=== PATIENT | male | born 1985 ===

== ENCOUNTER 2023-11-25 14:57 | Outpatient (AMB) | payer OTHER, SELFPAY ==
--- NOTE | 2023-11-25 15:02 | MHC.OFFVIS ---
Intake Vital Signs 11/25/23 15:03 Height 5 ft 6 in Weight 250 lb BMI 40.3 BP 132/70 Blood Pressure Location Rt brachial Position Sitting Intake Visit Reasons: sleep apnea Allergies No Known Allergies Allergy (Verified 11/25/23 15:02) HPI HPI Comments History of Present Illness Details The patient is here for pulmonary evaluation. The patient is a 38-year-old gentleman with a known history of obstructive sleep apnea. He has had a diagnosis made about 10 years ago he had a sleep study sometime [place]. At that point he was set up with a [employer] CPAP. It is the 1 that is recalled. Although he did not submitted for recall. The patient has been using it every night. He has no longer getting supplies through a DME company. Been buying his own supplies. He does using nasal pillows with good effect. Sometimes he gets a dry mouth although he does not use water on his machine. The patient will bring the machine into again download the data. In the meantime the machine now is greater than 10 years old and he should be able to update the machine specially since he has been recalled. We will request a replacement machine through 1 of the local DME companies at this time. His current [place] score is 6/24 while using CPAP therefore affecting beneficial. He does use it for more than 4 hours a night and he is found very affecting beneficial. Otherwise patient is without any o [facility] Medical History (Updated 11/25/23 @ 22:38 by Charles Nielson MD) KAYLI (obstructive sleep apnea) Social History (Updated 11/25/23 @ 15:07 by PADMA Evans) Patient Tobacco Use Status: Never used Tobacco Substance Use Type: Marijuana Review of Systems Const Denies daytime sleepiness Eyes Reports no additional complaints ENT Denies nasal congestion Card Denies chest pain Resp Denies cough and Denies wheezing GI Reports no additional complaints Musc Reports no additional complaints Skin/Breast Denies rash Neuro Reports no additional complaints Zac/Lymph Denies lymphadenopathy Aller/Immun Denies wheezing Physical Exam Vital Signs: Last Vital Signs BP 132/70 11/25/23 15:03 BMI result Body Mass Index 40.3 Const General: comfortable HEENT Head: Yes normocephalic Neck Neck: Yes supple Chest Chest palpation & inspection: normal inspection of the chest Resp Effort & Inspection: normal respiratory effort Auscultation: clear to auscultation bilaterally Cardio Heart sounds: S1 normal heart sound present and S2 normal heart sound present GI Palpation (GI): Soft to palpation Skin General skin exam: no rashes or lesions noted Extrem General: Yes no clubbing, cyanosis or edema Assessment & Plan Assessment & Plan (1) KAYLI (obstructive sleep apnea): Code(s): G47.33 - Obstructive sleep apnea (adult) (pediatric) Plan Needs a replacement CPAP. uses p10 nasal pillows Coding Level of Care Code New Pt Level 3 (42361) Diagnoses KAYLI (obstructive sleep apnea) G47.33 Time Spent (min) 30
[2023-11-25 15:03] VITALS: BP 132/70; BMI 40.3
== END 2023-11-25 15:27 | disposition home or self-care (01) ==
PROVIDERS: Visit Provider Hospitalist
DX: G47.33 Obstructive sleep apnea (adult) (pediatric) (principal)
CPT/HCPCS: 99203

== ENCOUNTER → 2023-11-25 14:57 | Outpatient (BNVA) | payer OTHER, SELFPAY | PROVIDERS: Visit Provider Hospitalist ==

== ENCOUNTER 2024-12-16 12:18 | Emergency (ER) | payer OTHER, SELFPAY ==
--- NOTE | ~2024-12-16 | XR_ITS ---
CLINICAL HISTORY: Chest pain 1 view chest x-ray Comparison: None Findings: No consolidation or effusion. Heart size is normal. No acute fracture. IMPRESSION: 1. No acute findings. This document has been electronically signed by: Rashida Anaya MD on 12/16/2024 13:21:01
--- NOTE | 2024-12-16 12:19 | ECG_ITS ---
Test Reason : CHEST PAIN Blood Pressure : */* mmHG Vent. Rate : 131 BPM Atrial Rate : 131 BPM P-R Int : 142 ms QRS Dur : 92 ms QT Int : 300 ms P-R-T Axes : 57 29 26 degrees QTcB Int : 443 ms Sinus tachycardia Otherwise normal ECG No previous ECGs available Referred By: Ana M De La Vega Electronically Signed By: AMBER RAMOS
[2024-12-16 12:31] VITALS: PULSE 131; RESP 19; TEMP 36.6; O2SAT 98; BMI 38.4
--- NOTE | 2024-12-16 12:32 | ED.CHESTPAIN ---
HPI - Chest Pain General Chief Complaint: Arrhythmia/Palpitations Stated Complaint: chest pain Time Seen by Provider: 12/16/24 13:20 Source: patient Limitations: no limitations History of Present Illness ED Provider: Chet Thompson DO HPI narrative: 39-year-old male with past medical history of obstructive sleep apnea and GERD presents to the ED for chest pain and difficulty breathing. Patient states he was out on a walk with his dog and approximately 10 minutes into the walk which was at about 10:00 this morning he experienced the shortness of breath which is atypical for him. When he completed the 20 minute walk he then noticed a heaviness on the left side of his chest without radiation described as a 10 lb weight on his chest. He describes that over time with rest the weight is approximately 3 or 4 lb at this time. He denies similar pain in the past and states the pressure is much different from his normal GERD. He denies any specific increased pain with deep breaths but notices it more after complete exhalation. He denies recent illnesses, fevers, cough, hemoptysis, lower extremity pain or swelling, previous DVT or PE, recent travel, immobilization, cancer history or recent surgeries. He is on medication for hyperlipidemia and metformin for diabetes. He has a primary care provider. He uses pillows for his sleep apnea, does not use CPAP machine. Related Data Home Medications ?Medication ?Instructions ?Recorded ?Confirmed CPAP (CPAP Machine/Device) 11/25/23 Allergies Allergy/AdvReac Type Severity Reaction Status Date / Time No Known Allergies Allergy Verified 12/16/24 12:32 Review of Systems Review of Systems: Yes all other systems are reviewed and are negative [facility] Past Medical History Medical History (Updated 12/16/24 @ 15:56 by Chet Thompson DO) KAYLI (obstructive sleep apnea) Social History Social History (Updated 11/25/23 @ 15:07 by PADMA Evans) Patient Tobacco Use Status: Never used Tobacco Smoked in Last 30 Days: No Use of substances other than those prescribed or required for medical reasons: Yes Substance Use Type: Marijuana Substance Use Frequency: Daily Advance Directives: No Advance Directives Information Provided: No Do you have a plan to hurt others: No Plan Physical Exam Vital Signs: Vital Signs: Last Vital Signs Temp 98 F 12/16/24 12:31 Pulse 102 H 12/16/24 14:26 Resp 18 12/16/24 14:26 BP 130/84 12/16/24 14:26 Pulse Ox 97 12/16/24 14:26 O2 Del Method Room Air 12/16/24 14:26 BMI result Body Mass Index 38.4 Constitutional: ?Alert, oriented, speaking in full sentences HEENT: ?Normocephalic, atraumatic. ?Moist mucous membranes Eyes: ?PERRL, EOMI Neck: ?Supple, nontender Chest: ?No chest wall tenderness Respiratory: ?Lungs clear to auscultation, no increased work of breathing Cardio: ?Tachycardic, regular rhythm, no murmur, 2+ radial and DP pulses symmetrically GI: ?Soft, nondistended, nontender Back: ?Normal range of motion, nontender Skin: ?No rash, no lesions Neuro: ?Alert and oriented to person, place and time, moves all 4 extremities, no focal deficits Extremities: ?No swelling or tenderness, full range of motion Psych: ?Calm, alert and cooperative, appropriate behavior Course Course Course Narrative: This is a Rapid Medical Exam performed in triage by Ana M De La Vega PA-C. Full HPI, ROS and PE to be performed by primary ED provider. 39 yo M w/PMHx KAYLI presenting to the ED c/o chest pain, SOB and tingling x 1 hour [employer] PE: Ambulating with steady gait, nontoxic appearing, no respiratory distress Plan: EKG, labs, CXR, viral testing Medications Administered Discontinued Medications Generic Name Dose Route Start Last Admin Trade Name Freq PRN Reason Stop Dose Admin Aspirin 324 mg 12/16/24 14:09 12/16/24 14:28 Aspirin 81 Mg Tab.Chew PO 12/16/24 14:10 324 mg ONCE ONE Administration Medical Decision Making Medical Decision Making [facility] Narrative: This patient presents with chest pain. His risk factors include hyperlipidemia and type 2 diabetes. Never tobacco user. No previous cardiac provocative testing. Exam without evidence of volume overload. EKG without signs of active ischemia. HEART score: 3. Plan to send troponin to evaluate for evidence of NSTEMI. Although he is not hypoxic, he is tachycardic and PE will be further evaluated with D-dimer as he is low risk when applying Wells criteria. Presentation not consistent with pneumothorax, thoracic arotic dissection, cardiac effusion or tamponade. Plan: labs, troponin, EKG, CXR, ASA, serial reassessment Initial troponin unremarkable. Other labs are reassuring, D-dimer pending. Patient will require repeat troponin. Repeat troponin, D-dimer and repeat ECG unremarkable. Chest pressure has resolved and did not recur with ambulation to the bathroom. The patient is overall low risk for severe adverse effects at this time. I did discuss with him that it is imperative that he returns with any worsening symptoms, especially with ambulation and that he follows up with his primary care provider and/or Cardiology (referral provided) for outpatient testing. Patient agrees with plan. Admission/Observation Consideration of admission/observation: Escalation of care including admission/observation considered Lab Data MDM Lab Attestation statement: I reviewed the patient's lab results. 12/16/24 12:53 12/16/24 12:53 Labs: Lab Results 12/16/24 12/16/24 Range/Units 12:53 15:02 WBC 9.1 (4.8-10.8) X10*3/uL RBC 4.89 (4.60-5.80) X10*6/uL Hgb 15.1 (14.0-18.0) g/dl Hct 43.2 (42.0-52.0) % MCV 88.3 (80.0-98.0) fL MCH 30.9 (27.0-33.0) pg MCHC 35.0 (31.0-36.0) g/dl RDW 12.4 (11.0-16.0) % Plt Count 364 (160-400) X10*3/uL MPV 9.1 L (9.4-12.4) fL Immature Gran % (Auto) 0.3 (0.0-0.4) % Neut % (Auto) 58.7 (45-73) % Lymph % (Auto) 27.0 (20-40) % [place] % (Auto) 10.5 (2-11) % Eos % (Auto) 2.6 (0-4) % Baso % (Auto) 0.9 (0-2) % Lymph # (Auto) 2.5 (1.2-4.9) X10*3/uL [place] # (Auto) 1.0 (0.1-1.2) X10*3/uL Eos # (Auto) 0.2 (0.0-0.4) X10*3/uL Baso # (Auto) 0.1 (0.0-0.2) X10*3/uL Abs Immat Gran (auto) 0.03 (0.00-0.03) X10*3/uL Absolute Neuts (auto) 5.3 (2.0-8.3) x10*3/uL Absolute Nucleated RBC 0.000 (0.0-0.012) X10*3/uL Nucleated RBC % (auto) 0.0 (0.0-0.2) /100WBC PT 11.5 (10.9-12.4) SEC INR 1.0 (0.9-1.1) D-Dimer High Sensitivty < 150 NG/ML Sodium 139 (135-145) mmol/L Potassium 3.9 (3.3-5.1) mmol/L Chloride 108 (96-108) mmol/L Carbon Dioxide 22 (22-29) mmol/L Anion Gap 13 (12-20) BUN 11 (9-16) mg/dL Creatinine 1.00 (0.5-1.4) mg/dL Estim Creat Clear Calc 112.0 Estimated GFR > 60 Random Glucose 134 H (60-115) mg/dL Calcium 8.9 (8.4-10.2) mg/dL Magnesium 1.9 (1.6-2.6) mg/dL Total Bilirubin 0.4 (0.0-1.0) mg/dL Direct Bilirubin 0.2 (0.0-0.5) mg/dL AST 26 (5-37) U/L ALT 30 (0-40) U/L Alkaline Phosphatase 91 (39-117) U/L Troponin I High Sens < 2.7 < 2.7 (<3.5-35.0) ng/L B-Natriuretic Peptide < 10 (<100) pg/mL Total Protein 7.8 (6.5-8.0) g/dL Albumin 4.4 (3.5-5.0) g/dL TSH 0.61 (0.32-4.0) uIU/mL Influenza Type A (PCR) NEGATIVE (Negative) Influenza Type B (PCR) NEGATIVE (Negative) RSV RNA Qual (PCR) NEGATIVE (Negative) SARS-CoV-2 RNA (RT-PCR) NEGATIVE (Negative) Independent Interpretation I performed an independent interpretation of an: EKG and Plain X-Ray (Chest x-ray per my independent interpretation shows no acute cardiopulmonary abnormalities.) Interpretation: Sinus tachycardia at 131 beats per minute, normal axis, unremarkable intervals, some ST depression anteriorly, likely rate dependent, no diagnostic ST wave elevation, no prior for comparison. Repeat ECG at 14:50 shows borderline sinus tachycardia at 100 beats per minute, no ST or T-wave abnormalities with the exception of normal variant T-wave inversion in lead 3. Scores Heart Score History: -1- moderately suspicious ECG: -0- normal Age: -0- < or = 45 Risk factory: -2- 3 or more risk factors or treated atherosclerosis Troponin: -0- < or = normal limit Score: 3 Risk: 1.7% Wells PE Heart rate > 100 p/min: 1.5 Score: 1.5 2-tier Risk: unlikely risk (5%) 3-tier Risk: low risk (3.4%) Discharge Plan Discharge Clinical Impression: Chest pain Qualifiers: Chest pain type: unspecified Qualified Code(s): R07.9 - Chest pain, unspecified Patient Disposition: Home, Self-Care Instructions: Chest Pain (ED) Additional Instructions: You have been evaluated in the emergency department for chest pain today.? Although it was determined that there was not an immediately life threatening cause for your chest pain, it is very important that you follow up with your primary care physician.? Further cardiac (heart) testing may be recommended. Please be aware that if your condition changes or worsens in any way while you are at home, you should return to the emergency department immediately for further care.? This is especially true for worsening / recurrent pain, shortness of breath, vomiting, sweating, palpitations, lightheadedness or passing out.? These may be signs of an emergency condition and you should call 911 if these symptoms occur. Thank you for choosing us for your care. Prescriptions: No Action (DME) CPAP Machine/Device Device See Rx Instructions .ROUTE Rx Instructions: As directed Referrals: [facility] [place] [facility] [Provider Group] (Chest pain described as pressure with exertion, overall low risk with a heart score of 3, unremarkable troponin x2, ECG x2 and D-dimer here. Recommend outpatient stress test) Print Language: [place]
[2024-12-16 12:58] LABS: MANUAL DIFF FLAG NO
[2024-12-16 13:00] LABS: Basophils Absolute Auto 0.1 X10*3/uL (0.0-0.2); Basophils Percent Auto 0.9 % (0-2); Eosinophils Absolute Auto 0.2 X10*3/uL (0.0-0.4); Eosinophils Percent Auto 2.6 % (0-4); Hematocrit 43.2 % (42.0-52.0); Hemoglobin 15.1 g/dl (14.0-18.0); Imm Gran Abs Auto 0.03 X10*3/uL (0.00-0.03); Imm Gran Pct Auto 0.3 % (0.0-0.4); Lymphocytes Absolute Auto 2.5 X10*3/uL (1.2-4.9); Mean Corpuscular Hemoglobin 30.9 pg (27.0-33.0); Mean Corpuscular Volume 88.3 fL (80.0-98.0); Mean Platelet Volume 9.1 fL (9.4-12.4); Monocytes Percent Auto 10.5 % (2-11); Neutrophils Absolute Auto 5.3 x10*3/uL (2.0-8.3); Neutrophils Percent Auto 58.7 % (45-73); Platelet Count 364 X10*3/uL (160-400); Red Blood Count 4.89 X10*6/uL (4.60-5.80); Red Cell Distribution Width 12.4 % (11.0-16.0); White Blood Count 9.1 X10*3/uL (4.8-10.8)
[2024-12-16 13:06] LABS: Prothrombin Time 11.5 SEC (10.9-12.4)
--- OUTSIDE RECORDS SUMMARY | 2024-12-16 13:13 | XMS_ITS | Data Portability ---
Author Organization [facility], [facility] Address [address] [place] [address] Care Team Providers Care Online Content Editor Name Role Phone ANTONYEMETERIO Primary Care Provider Assessment No assessment recorded. Plan of Treatment Reminders Order Date Submit Date Provider Last Modified By Organization Details Last Modified Time Details Appointments PCP-Physi gail-30 Min 2024 11:30A M LYNNE SMITH NP Not available Not available Not available Lab HbA1c (hemoglob in A1c), blood 2022 023 [facility], [address] [place], [address], 01/14/2023 21:16:16 CMP, serum or plasma 2022 023 [facility], [address] [place], [address], 01/14/2023 21:25:28 TSH, serum, reflex free T4 2022 023 [facility], [address] [place], [address], 01/14/2023 21:25:29 lipid panel, serum 2022 023 [facility], [address] [place], [address], 01/14/2023 21:25:29 toxicolog y screen, urine 2022 023 [facility], [address] [place], [address], 10/05/2023 18:08:14 HbA1c (hemoglob in A1c), blood 2022 023 [facility], [address] [facility] [place], [address], 10/01/2023 16:01:45 urinalysi s, dipstick, reflex micro 2022 023 [facility], [address] [facility] [place], [address], 10/01/2023 15:29:30 CMP, serum or plasma 2022 023 [facility], [address] [facility] [place], [address], 10/01/2023 16:10:30 CBC w/ auto diff 2022 023 [facility], [address] [place], [address], 10/01/2023 15:44:48 TSH + free T4, serum 2022 023 [facility], [address] [facility] [place], [address], 10/01/2023 16:10:36 vitamin B12 + folate, serum or blood 2022 023 [facility], [address] [facility] [place], [address], 10/01/2023 16:19:43 lipid panel, serum 2022 023 [facility], [address] [facility] [place], [address], 10/01/2023 16:10:34 25-hydrox yvitamin D2 + 25-hydrox yvitamin D3, QN, serum or plasma 2022 023 [facility], [address] [facility], [address], 10/01/2023 16:19:12 magnesium , serum or plasma 2022 023 [facility], [address] [place], [address], 10/01/2023 16:10:33 HbA1c (hemoglob in A1c), blood 2023 024 [facility], [address] [place], [address], 01/21/2024 22:20:17 CBC w/ auto diff 2023 024 [facility], [address] [place], [address], 01/21/2024 21:05:32 CMP, serum or plasma 2023 024 [facility], [address] [place], [address], 01/21/2024 20:41:26 toxicolog y screen, urine 2023 024 [facility], [address] [place], [address], 05/10/2024 13:09:23 HbA1c (hemoglob in A1c), blood 2023 024 [facility], [address] [place], [address], 04/28/2024 16:44:30 CMP, serum or plasma 2023 024 [facility], [address] [place], [address], 04/28/2024 16:26:43 CBC w/ auto diff 2023 024 [facility], [address] [place], [address], 04/28/2024 15:31:29 Referral pulmonolo gist referral - Please let the office know if patient has been scheduled at [phone] 2022 023 [email or web address] [facility] [place], [address], 08/17/2024 13:02:49 psychiatr ist referral - patient is looking for a psychiatr ist - was referred from his therapist has been taking antidepre ssants and also on Ritalin for ADHD [email or web address] [place] [address], [address] [place] [address], [address], 03/27/2024 09:28:57 Procedures None recorded. Surgeries None recorded. Imaging None recorded. Medication Orders methylphe nidate 20 mg tablet 2022 [id number] [address] [place], [address], 10/01/2023 10:57:23 methylphe nidate ER 36 mg tablet,ex tended release 24 hr 2022 023 [facility] #[id number], [address] [place], [address], 10/01/2023 10:49:30 bupropion HCl 75 mg tablet 2022 023 [facility] #[id number], [address] [place], [address], 10/01/2023 10:51:22 metoprolo l succinate ER 50 mg tablet,ex tended release 24 hr 2023 024 [facility] #[id number], [address] [place], [address], 01/21/2024 15:58:48 Trulicity 0.75 mg/0.5 mL subcutane ous pen injector 2023 024 [facility] #[id number], [address] [place], [address], 04/28/2024 10:16:56 methylphe nidate ER 36 mg tablet,ex tended release 24 hr 2023 024 [id number], [address] [place], [address], 01/21/2024 15:57:12 methylphe nidate 20 mg tablet 2023 024 [id number] [facility]/Pharmacy #[id number], [address] [place], [address], 01/24/2024 01:19:39 venlafaxi ne ER 75 mg capsule,e xtended release 24 hr 2023 024 [email or web address] [facility]armacy #[id number], [address] [place], [address], 01/21/2024 15:55:55 Patient TargetsNo targets recorded. Patient Instructions Encounter Date Encounter Id Patient Instructions Last Modified By Organization Details Last Modified Time 10/01/2023 [id number] discussed having influenza vaccine at the pharmacy discussed changing metformin 500 mg to extended release UDS completed today for scheduled med monitoring added long acting concerta 36 mg daily and continue the short acting as needed at 2-3pm - 10 mg tabs - (1 or 2 as needed) in the later afternoon added wellbutrin 75 mg BID for tolerance - he is already taking venlafaxine 225 mg daily would like to add wellbutrin at a low dose to see how he tolerates this med with his regimen Labs pending aminata Not available 10/01/2023 10:54:04 01/21/2024 [id number] follow up in 3 months or sooner for DM, tachycardia start trulicity injections weekly - Last A1C 8.1 continue Metformin 1000 BID - (has only been taking 500 daily on accident) labs pending today 3 month follow up scheduled aminata Not available 01/21/2024 16:12:26 04/28/2024 [id number] labs ordered no changes today - will call with results if needing to titrate any meds Annual exam 10/2024 aminata Not available 04/28/2024 10:25:29 Reason for Referral Transformation Manager Referral for S leep apnea Please let the office know if patient has been scheduled at [phone] Referring Physician: Lynne Smith [facility], Encounter Date: 10/01/2023 Psychiatrist Referral for Mi xed anxiety and depressive disorder patient is looking for a psychiatrist - was referred from his therapist has been taking antidepressants and also on Ritalin for ADHD Referring Physician: Lynne Smith [facility], Encounter Date: 01/21/2024 Results Created Date Observation Date Name Description Value Unit Range Abnormal Flag Note LastModifiedBy Organization Detail LastModifiedTime 01/15/2001/14/2023 HEMOG LOBIN A1C hemoglobin A1C % 6.0 % 4.0-5. 7 high % of the total HgB Inter preta tion ----- ----- ----- --- ----- ----- ----- - <5.7 Consi stent with the absen ce of diabe theresa 5.7-6 .4 Consi stent with incre ased risk for diabe theresa (pred iabet es) > or = to 6.5 Consi stent with Diabe theresa Not Available [facility] [address] [place], [address] 01/14/2023 21:16:16 01/15/2001/14/2023 COMPR EHENS YADY MET. PANEL sodium 142 mmol/ L 136-14 5 normal Not Available [facility] [address] [place], [address] 01/14/2023 21:25:28 01/15/20 23 01/14/2023 COMPR EHENS YADY MET. PANEL potassium 4.3 mmol/ L 3.5-5. 1 normal Not Available [facility] [address] [place], [address] 01/14/2023 21:25:28 01/15/20 23 01/14/2023 COMPR EHENS YADY MET. PANEL chloride 100 mmol/ L 98-107 normal Not Available [facility] [address] [place], [address] 01/14/2023 21:25:28 01/15/20 23 01/14/2023 COMPR EHENS YADY MET. PANEL carbon dioxide 27.6 mmol/ L 22-29 normal Not Available [facility] [address] [place], [address] 01/14/2023 21:25:28 01/15/20 23 01/14/2023 COMPR EHENS YADY MET. PANEL anion gap 19 mmol/ L 10-20 normal Not Available [facility] [address] [place], [address] 01/14/2023 21:25:28 01/15/20 23 01/14/2023 COMPR EHENS YADY MET. PANEL blood urea nitrogen 12 mg/dL 6-20 normal Not Available [facility] Department [address] [place], [address] 01/14/2023 21:25:28 01/15/20 23 01/14/2023 COMPR EHENS YADY MET. PANEL creatinine 1.12 mg/dL 0.70-1 .2 normal Not Available [facility] [address] [place], [address] 01/14/2023 21:25:28 01/15/2001/14/2023 COMPR EHENS YADY MET. PANEL eglomerular filtration rate 82 GFR Value : ml/mi n/1.7 3 squar e meter s * If patie nt is Afric an-Am jayne n, multi ply resul t by 1.159 Chron ic Kidne y Disea se is defin ed as less than 60 ml/mi n/1.7 3 squar e meter s. Kidne y failu re is less than 15 ml/mi n/1.7 3 squar e meter s Test is not perfo rmed on patie nts under the age of 18 Not Available [facility] [address] [place], [address] 01/14/2023 21:25:28 01/15/20 23 01/14/2023 COMPR EHENS YADY MET. PANEL glucose 71 mg/dL 70-106 normal Not Available [facility] [address] [place], [address] 01/14/2023 21:25:28 01/15/20 23 01/14/2023 COMPR EHENS YADY MET. PANEL calcium 10.9 mg/dL 8.6-10 .3 high Not Available [facility] [address] [place], [address] 01/14/2023 21:25:28 01/15/20 23 01/14/2023 COMPR EHENS YADY MET. PANEL bilirubin total 0.3 mg/dL 0.2-1. 2 normal Not Available [facility] [address] [place], [address] 01/14/2023 21:25:28 01/15/20 23 01/14/2023 COMPR EHENS YADY MET. PANEL aspartate amino transferase 36 U/L 5-40 normal Not Available [facility] Department [address] [place], [address] 01/14/2023 21:25:28 01/15/20 23 01/14/2023 COMPR EHENS YADY MET. PANEL alanine aminotransfe rase 43 U/L 5-41 high Not Available [facility] Department [address] [place], [address] 01/14/2023 21:25:28 01/15/20 23 01/14/2023 COMPR EHENS YADY MET. PANEL total protein 8.0 g/dL 6.4-8. 3 normal Not Available [facility] [address] [place], [address] 01/14/2023 21:25:28 01/15/20 23 01/14/2023 COMPR EHENS YADY MET. PANEL albumin level 4.9 g/dL 3.5-5. 2 normal Not Available [facility] [address] [place], [address] 01/14/2023 21:25:28 01/15/20 23 01/14/2023 COMPR EHENS YADY MET. PANEL globulin 3.1 gm/dL 2.0-3. 5 normal Not Available [facility] [address] [place], [address] 01/14/2023 21:25:28 01/15/20 23 01/14/2023 COMPR EHENS YADY MET. PANEL albumin globulin ratio 1.6 % 1.1-2. 5 normal Not Available [facility] [address] [place], [address] 01/14/2023 21:25:28 01/15/20 23 01/14/2023 COMPR EHENS YADY MET. PANEL alkaline phosphatase 112 U/L 40-129 normal Not Available [facility] Department [address] [place], [address] 01/14/2023 21:25:28 01/15/2001/14/2023 LIPID PANEL WITH REFLE X triglyceride s w/ reflex LDL 355 mg/dL 30-150 high Refer ence Range s: <150 mg/dl Hedy l 150-1 99 mg/dl Borde rline High 200-4 99 mg/dl High >500 mg/dl Very High Not Available [facility] [address] [place], [address] 01/14/2023 21:25:29 01/15/20 23 01/14/2023 LIPID PANEL WITH REFLE X cholesterol 260 mg/dL 100-20 0 high Not Available [facility] [address] [place], [address] 01/14/2023 21:25:29 01/15/20 23 01/14/2023 LIPID PANEL WITH REFLE X LDL cholesterol calculated 142.7 mg/dL 0-100 high Natio nal Xin stero l Educa tion Progr am sugge sts the follo wing refer ence range : Optim al <100 mg/dL Near optim al/ab ove optim al 100-1 29 mg/dL Borde rline high 130-1 59 mg/dL High 160-1 89 mg/dL Very high >190 mg/dL Not Available [facility] [address] [place], [address] 01/14/2023 21:25:29 01/15/20 23 01/14/2023 LIPID PANEL WITH REFLE X HDL cholesterol 46.3 mg/dL 40-60 normal Major risk facto r for CHD: <40 mg/dL Negat yady risk facto r for CHD: >=60 mg/dL Not Available [facility] [address] [place], [address] 01/14/2023 21:25:29 01/15/20 23 01/14/2023 LIPID PANEL WITH REFLE X chol HDL ratio 5.62 Risk CHOL/ HDL CHOL/ HDL Ratio Male Femal e 1/2 AVERA GE 3.43 3.27 AVERA GE 4.97 4.44 2 X AVERA GE 9.55 7.05 3 X AVERA GE 23.39 11.04 Not Available [facility] [address] [place], [address] 01/14/2023 21:25:29 01/15/20 23 01/14/2023 TSH REFLE X FREE T4 TSH reflex free T4 1.00 uIU/m L 0.27-4 .20 normal Not Available [facility] [address] [place], [address] 01/14/2023 21:25:29 05/24/20 23 05/24/2023 COMPR EHENS YADY MET. PANEL sodium 141 mmol/ L 136-14 5 normal Not Available [facility] [address] [place], [address] 05/24/2023 15:37:29 05/24/20 23 05/24/2023 COMPR EHENS YADY MET. PANEL potassium 4.5 mmol/ L 3.5-5. 1 normal Not Available [facility] [address] [place], [address] 05/24/2023 15:37:29 05/24/20 23 05/24/2023 COMPR EHENS YADY MET. PANEL chloride 105 mmol/ L 98-107 normal Not Available [facility] [address] [place], [address] 05/24/2023 15:37:29 05/24/20 23 05/24/2023 COMPR EHENS YADY MET. PANEL carbon dioxide 26.6 mmol/ L 22-29 normal Not Available [facility] [address] [place], [address] 05/24/2023 15:37:29 05/24/20 23 05/24/2023 COMPR EHENS YADY MET. PANEL anion gap 14 mmol/ L 10-20 normal Not Available [facility] [address] [place], [address] 05/24/2023 15:37:29 05/24/20 23 05/24/2023 COMPR EHENS YADY MET. PANEL blood urea nitrogen 12 mg/dL 6-20 normal Not Available [facility] Department [address] [place], [address] 05/24/2023 15:37:29 05/24/20 23 05/24/2023 COMPR EHENS YADY MET. PANEL creatinine 0.99 mg/dL 0.70-1 .2 normal Not Available [facility] [address] [place], [address] 05/24/2023 15:37:29 05/24/2005/24/2023 COMPR EHENS YADY MET. PANEL estimated glomerular filt rate 99 GFR Value : mL/mi n/1.7 3 squar e meter s Calcu latio n: CKD-E PI Creat inine Equat ion (2020 ) Chron ic Kidne y Disea se is defin ed as eithe r of the follo wing prese nt for >= 3 month s: - GFR less than 60 mL/mi n/1.7 3 squar e meter s. - Micro album in:Ur . Creat inine Ratio >= 30 mg/g or other marke rs of kidhugh y damag e Kidne y failu re is less than 15 mL/mi n/1.7 3 squar e meter s This test is not perfo rmed in patie nts under the age of 18. Not Available [facility] [address] [place], [address] 05/24/2023 15:37:29 05/24/2005/24/2023 COMPR EHENS YADY MET. PANEL glucose 134 mg/dL 70-106 high Not Available [facility] [address] [place] [address], [address] 05/24/2023 15:37:29 05/24/2005/24/2023 COMPR EHENS YADY MET. PANEL calcium 9.1 mg/dL 8.6-10 .3 normal Not Available [facility] [address] [place] [address], [address] 05/24/2023 15:37:29 05/24/2005/24/2023 COMPR EHENS YADY MET. PANEL bilirubin total 0.3 mg/dL 0.2-1. 2 normal Not Available [facility] [address] [place] [address], [address] 05/24/2023 15:37:29 05/24/20 23 05/24/2023 COMPR EHENS YADY MET. PANEL aspartate amino transferase 20 U/L 5-40 normal Not Available [facility] Department [address] [place] [address], [address] 05/24/2023 15:37:29 05/24/20 23 05/24/2023 COMPR EHENS YADY MET. PANEL alanine aminotransfe rase 29 U/L 5-41 normal Not Available [facility] Department [address] [place], [address] 05/24/2023 15:37:29 05/24/20 23 05/24/2023 COMPR EHENS YADY MET. PANEL total protein 6.9 g/dL 6.4-8. 3 normal Not Available [facility] [address] [place], [address] 05/24/2023 15:37:29 05/24/20 23 05/24/2023 COMPR EHENS YADY MET. PANEL albumin level 4.4 g/dL 3.5-5. 2 normal Not Available [facility] [address] [place], [address] 05/24/2023 15:37:29 05/24/20 23 05/24/2023 COMPR EHENS YADY MET. PANEL globulin 2.5 gm/dL 2.0-3. 5 normal Not Available [facility] [address] [place], [address] 05/24/2023 15:37:29 05/24/20 23 05/24/2023 COMPR EHENS YADY MET. PANEL albumin globulin ratio 1.8 % 1.1-2. 5 normal Not Available [facility] [address] [place], [address] 05/24/2023 15:37:29 05/24/20 23 05/24/2023 COMPR EHENS YADY MET. PANEL alkaline phosphatase 92 U/L 40-129 normal Not Available [facility] Department [address] [place], [address] 05/24/2023 15:37:29 05/24/20 23 05/24/2023 LIPID PANEL WITH REFLE X triglyceride s w/ reflex LDL 146 mg/dL 30-150 normal Refer ence Range s: <150 mg/dl Hedy l 150-1 99 mg/dl Borde rline High 200-4 99 mg/dl High >500 mg/dl Very High Not Available [facility] [address] [place], [address] 05/24/2023 15:37:31 05/24/20 23 05/24/2023 LIPID PANEL WITH REFLE X cholesterol 218 mg/dL 100-20 0 high Not Available [facility] [address] [place], [address] 05/24/2023 15:37:31 05/24/2005/24/2023 LIPID PANEL WITH REFLE X LDL cholesterol calculated 147.5 mg/dL 0-100 high Natio nal Xin stero l Educa tion Progr am sugge sts the follo wing refer ence range : Optim al <100 mg/dL Near optim al/ab ove optim al 100-1 29 mg/dL Borde rline high 130-1 59 mg/dL High 160-1 89 mg/dL Very high >190 mg/dL Not Available [facility] [address] [place], [address] 05/24/2023 15:37:31 05/24/20 23 05/24/2023 LIPID PANEL WITH REFLE X HDL cholesterol 41.3 mg/dL 40-60 normal Major risk facto r for CHD: <40 mg/dL Negat yady risk facto r for CHD: >=60 mg/dL Not Available [facility] [address] [place], [address] 05/24/2023 15:37:31 05/24/20 23 05/24/2023 LIPID PANEL WITH REFLE X chol HDL ratio 5.28 Risk CHOL/ HDL CHOL/ HDL Ratio Male Femal e 1/2 AVERA GE 3.43 3.27 AVERA GE 4.97 4.44 2 X AVERA GE 9.55 7.05 3 X AVERA GE 23.39 11.04 Not Available [facility] [address] [place], [address] 05/24/2023 15:37:31 10/01/20 23 10/01/2023 UA + MICRO (DO NOT ORDER ) color urine YELLOW yellow Not Available [facility] Department [address] [place], [address] 10/01/2023 15:45:26 10/01/20 23 10/01/2023 UA + MICRO (DO NOT ORDER ) appearance urine CLEAR clear Not Available [facility] Department [address] [place], [address] 10/01/2023 15:45:26 10/01/2010/01/2023 UA + MICRO (DO NOT ORDER ) specific gravity urine 1.025 1.001- 1.035 Not Available [facility] [address] [place], [address] 10/01/2023 15:45:26 10/01/2010/01/2023 UA + MICRO (DO NOT ORDER ) glucose urine UA NEGATI VE negati ve Not Available [facility] [address] [place] [address], [address] 10/01/2023 15:45:26 10/01/2010/01/2023 UA + MICRO (DO NOT ORDER ) bilirubin urine NEGATI VE negati ve Not Available [facility] [address] [place] [address], [address] 10/01/2023 15:45:26 10/01/2010/01/2023 UA + MICRO (DO NOT ORDER ) ketones urine NEGATI VE negati ve Not Available [facility] [address] [place] [address], [address] 10/01/2023 15:45:26 10/01/2010/01/2023 UA + MICRO (DO NOT ORDER ) urine hemoglobin NEGATI VE negati ve Not Available [facility] [address] [place] [address], [address] 10/01/2023 15:45:26 10/01/2010/01/2023 UA + MICRO (DO NOT ORDER ) pH urine 6.0 5.0-8. 0 Not Available [facility] [address] [place] [address], [address] 10/01/2023 15:45:26 10/01/2010/01/2023 UA + MICRO (DO NOT ORDER ) protein urine 1+ mg/dL negati ve abnormal Not Available [facility] [address] [place] [address], [address] 10/01/2023 15:45:26 10/01/2010/01/2023 UA + MICRO (DO NOT ORDER ) urobilinogen urine 1.0 mg/dL 0.2-1. 0 Not Available [facility] [address] [place] [address], [address] 10/01/2023 15:45:26 10/01/20 23 10/01/2023 UA + MICRO (DO NOT ORDER ) nitrite urine NEGATI VE negati ve Not Available [facility] [address] [place], [address] 10/01/2023 15:45:26 10/01/20 23 10/01/2023 UA + MICRO (DO NOT ORDER ) leukocyte esterase urine NEGATI VE negati ve Not Available [facility] [address] [place], [address] 10/01/2023 15:45:26 10/01/20 23 10/01/2023 UA + MICRO (DO NOT ORDER ) RBC urine 0-2 0-3/hp f Not Available [facility] [address] [place], [address] 10/01/2023 15:45:26 10/01/20 23 10/01/2023 UA + MICRO (DO NOT ORDER ) WBC urine 0-4 0-2/hp f Not Available [facility] [address] [place] [address], [address] 10/01/2023 15:45:26 10/01/20 23 10/01/2023 UA + MICRO (DO NOT ORDER ) squamous epithelial cell urine RARE few/hp f Not Available [facility] [address] [place], [address] 10/01/2023 15:45:26 10/01/20 23 10/01/2023 UA + MICRO (DO NOT ORDER ) bacteria urine RARE none seen Not Available [facility] [address] [place], [address] 10/01/2023 15:45:26 10/01/20 23 10/01/2023 UA + MICRO (DO NOT ORDER ) mucus urine 2+ few/hp f Not Available [facility] [address] [place], [address] 10/01/2023 15:45:26 10/01/20 23 10/01/2023 COMPL ETE BLOOD COUNT AUTO DIFF white blood count 8.33 K/uL 3.5-11 .0 normal Not Available [facility] [address] [place], [address] 10/01/2023 15:44:48 10/01/20 23 10/01/2023 COMPL ETE BLOOD COUNT AUTO DIFF red blood count 4.92 M/uL 3.90-5 .50 normal Not Available [facility] [address] [place], [address] 10/01/2023 15:44:48 10/01/20 23 10/01/2023 COMPL ETE BLOOD COUNT AUTO DIFF hemoglobin 14.8 g/dL 14.0-1 8.0 normal Not Available [facility] [address] [place], [address] 10/01/2023 15:44:48 10/01/20 23 10/01/2023 COMPL ETE BLOOD COUNT AUTO DIFF hematocrit 45.5 % 42.0-5 4.0 normal Not Available [facility] [address] [place], [address] 10/01/2023 15:44:48 10/01/20 23 10/01/2023 COMPL ETE BLOOD COUNT AUTO DIFF mean corpuscular volume 92.5 fL 80.0-1 00.0 normal Not Available [facility] [address] [place] [address], [address] 10/01/2023 15:44:48 10/01/20 23 10/01/2023 COMPL ETE BLOOD COUNT AUTO DIFF mean corpuscular hemoglobin 30.1 pg 25.4-3 4.6 normal Not Available [facility] [address] [place], [address] 10/01/2023 15:44:48 10/01/20 23 10/01/2023 COMPL ETE BLOOD COUNT AUTO DIFF mean corpuscular HGB conc 32.5 g/dL 31.0-3 7.0 normal Not Available [facility] [address] [place], [address] 10/01/2023 15:44:48 10/01/20 23 10/01/2023 COMPL ETE BLOOD COUNT AUTO DIFF red cell distribution width 12.7 % 11.5-1 4.5 normal Not Available [facility] [address] [place], [address] 10/01/2023 15:44:48 10/01/20 23 10/01/2023 COMPL ETE BLOOD COUNT AUTO DIFF platelet count 362 K/uL 150-40 0 normal Not Available [facility] [address] [place], [address] 10/01/2023 15:44:48 10/01/20 23 10/01/2023 COMPL ETE BLOOD COUNT AUTO DIFF neutrophils percent auto 59.4 % 35.0-6 6.0 normal Not Available [facility] [address] [place] [address], [address] 10/01/2023 15:44:48 10/01/20 23 10/01/2023 COMPL ETE BLOOD COUNT AUTO DIFF imm gran pct auto 0.5 % 0.0-0. 6 normal Not Available [facility] [address] [place] [address], [id number] 10/01/2023 15:44:48 10/01/2010/01/2023 COMPL ETE BLOOD COUNT AUTO DIFF lymphocytes percent auto 23.9 % 25.0-4 5.0 low Not Available [facility] [address] [place] [address], [id number] 10/01/2023 15:44:48 10/01/2010/01/2023 COMPL ETE BLOOD COUNT AUTO DIFF monocytes percent auto 11.3 % 0.0-13 .0 normal Not Available [facility] [address] [place] [address], [id number] 10/01/2023 15:44:48 10/01/2010/01/2023 COMPL ETE BLOOD COUNT AUTO DIFF eosinophils percent auto 3.7 % 0.0-8. 0 normal Not Available [facility] [address] [place] [address], [id number] 10/01/2023 15:44:48 10/01/2010/01/2023 COMPL ETE BLOOD COUNT AUTO DIFF basophils percent auto 1.2 % 0.0-1. 0 high Not Available [facility] [address] [place] [address], [id number] 10/01/2023 15:44:48 10/01/2010/01/2023 COMPL ETE BLOOD COUNT AUTO DIFF NRBC pct auto 0.0 /100_ WBC 0.0 normal Not Available [facility] [address] [place] [address], [id number] 10/01/2023 15:44:48 10/01/20 23 10/01/2023 COMPL ETE BLOOD COUNT AUTO DIFF neutrophils absolute auto 4.95 K/uL 1.5-7. 5 normal Cauti on: Inter preta tion of ANC resul ts witho ut inclu deisy of the WBC diffe renti al resul ts may lead to srikanth eous diagn osis; for examp le, faisal ng myelo proli ferat yady or lymph oprol ifera tive disor ders. Not Available [facility] [address] [place], [address] 10/01/2023 15:44:48 10/01/20 23 10/01/2023 COMPL ETE BLOOD COUNT AUTO DIFF imm gran abs auto 0.04 K/uL 0.00-0 .09 normal Not Available [facility] [address] [place], [address] 10/01/2023 15:44:48 10/01/20 23 10/01/2023 COMPL ETE BLOOD COUNT AUTO DIFF lymphocytes absolute auto 1.99 K/uL 0.8-4. 8 normal Not Available [facility] [address] [place] [address], [id number] 10/01/2023 15:44:48 10/01/20 23 10/01/2023 COMPL ETE BLOOD COUNT AUTO DIFF monocytes absolute auto 0.94 K/uL 0.4-1. 3 normal Not Available [facility] [address] [place] [address], [id number] 10/01/2023 15:44:48 10/01/20 23 10/01/2023 COMPL ETE BLOOD COUNT AUTO DIFF eosinophils absolute auto 0.31 K/uL 0.0-0. 8 normal Not Available [facility] [address] [place] [address], [id number] 10/01/2023 15:44:48 10/01/20 23 10/01/2023 COMPL ETE BLOOD COUNT AUTO DIFF basophils absolute auto 0.10 K/uL 0.0-0. 6 normal Not Available [facility] [address] [place] [address], [id number] 10/01/2023 15:44:48 10/01/20 23 10/01/2023 COMPL ETE BLOOD COUNT AUTO DIFF NRBC abs auto 0.00 K/uL 0.00 normal Not Available [facility] [address] [place], [address] 10/01/2023 15:44:48 10/01/20 23 10/01/2023 HEMOG LOBIN A1C hemoglobin A1C % 8.1 % 4.0-5. 7 high % of the total HgB Inter preta tion ----- ----- ----- --- ----- ----- ----- - <5.7 Consi stent with the absen ce of diabe theresa 5.7-6 .4 Consi stent with incre ased risk for diabe theresa (pred iabet es) > or = to 6.5 Consi stent with Diabe theresa Not Available [facility] [address] [place] [address], [id number] 10/01/2023 16:01:45 10/01/20 23 10/01/2023 COMPR EHENS YADY MET. PANEL sodium 139 mmol/ L 136-14 5 normal Not Available [facility] [address] [place] [address], [id number] 10/01/2023 16:10:30 10/01/20 23 10/01/2023 COMPR EHENS YADY MET. PANEL potassium 4.7 mmol/ L 3.5-5. 1 normal Not Available [facility] [address] [place] [address], [id number] 10/01/2023 16:10:30 10/01/20 23 10/01/2023 COMPR EHENS YADY MET. PANEL chloride 104 mmol/ L 98-107 normal Not Available [facility] [address] [place] [address], [id number] 10/01/2023 16:10:30 10/01/20 23 10/01/2023 COMPR EHENS YADY MET. PANEL carbon dioxide 27.0 mmol/ L 22-29 normal Not Available [facility] [address] [place] [address], [id number] 10/01/2023 16:10:30 10/01/20 23 10/01/2023 COMPR EHENS YADY MET. PANEL anion gap 13 mmol/ L 10-20 normal Not Available [facility] [address] [place] [address], [id number] 10/01/2023 16:10:30 10/01/20 23 10/01/2023 COMPR EHENS YADY MET. PANEL blood urea nitrogen 12 mg/dL 6-20 normal Not Available [facility] [address] [place] [address], [id number] 10/01/2023 16:10:30 10/01/20 23 10/01/2023 COMPR EHENS YADY MET. PANEL creatinine 0.96 mg/dL 0.70-1 .2 normal Not Available [facility] [address] [place], [address] 10/01/2023 16:10:30 10/01/20 23 10/01/2023 COMPR EHENS YADY MET. PANEL estimated glomerular filt rate 103 GFR Value : mL/mi n/1.7 3 squar e meter s Calcu latio n: CKD-E PI Creat inine Equat ion (2020 ) Chron ic Kidne y Disea se is defin ed as eithe r of the follo wing prese nt for >= 3 month s: - GFR less than 60 mL/mi n/1.7 3 squar e meter s. - Micro album in:Ur . Creat inine Ratio >= 30 mg/g or other marke rs of kidne y damag e Kidne y failu re is less than 15 mL/mi n/1.7 3 squar e meter s This test is not perfo rmed in patie nts under the age of 18. Not Available [facility] [address] [place], [address] 10/01/2023 16:10:30 10/01/20 23 10/01/2023 COMPR EHENS YADY MET. PANEL glucose 126 mg/dL 70-106 high Not Available [facility] [address] [place], [address] 10/01/2023 16:10:30 10/01/20 23 10/01/2023 COMPR EHENS YADY MET. PANEL calcium 9.5 mg/dL 8.6-10 .3 normal Not Available [facility] [address] [place], [address] 10/01/2023 16:10:30 10/01/20 23 10/01/2023 COMPR EHENS YADY MET. PANEL bilirubin total 0.4 mg/dL 0.2-1. 2 normal Not Available [facility] [address] [place], [address] 10/01/2023 16:10:30 10/01/20 23 10/01/2023 COMPR EHENS YADY MET. PANEL aspartate amino transferase 30 U/L 5-40 normal Not Available [facility] Department [address] [place], [address] 10/01/2023 16:10:30 10/01/20 23 10/01/2023 COMPR EHENS YADY MET. PANEL alanine aminotransfe rase 59 U/L 5-41 high Not Available [facility] [address] [place], [address] 10/01/2023 16:10:30 10/01/20 23 10/01/2023 COMPR EHENS YADY MET. PANEL total protein 7.1 g/dL 6.4-8. 3 normal Not Available [facility] [address] [place], [address] 10/01/2023 16:10:30 10/01/20 23 10/01/2023 COMPR EHENS YADY MET. PANEL albumin level 4.6 g/dL 3.5-5. 2 normal Not Available [facility] [address] [place] [address], 83439 10/01/2023 16:10:30 10/01/20 23 10/01/2023 COMPR EHENS YADY MET. PANEL globulin 2.5 gm/dL 2.0-3. 5 normal Not Available [facility] [address] [place] [address], 05898 10/01/2023 16:10:30 10/01/20 23 10/01/2023 COMPR EHENS YADY MET. PANEL albumin globulin ratio 1.8 % 1.1-2. 5 normal Not Available [facility] [address] [place], [address] 10/01/2023 16:10:30 10/01/20 23 10/01/2023 COMPR EHENS YADY MET. PANEL alkaline phosphatase 100 U/L 40-129 normal Not Available [facility] [address] [place], [address] 10/01/2023 16:10:30 10/01/20 23 10/01/2023 MAGNE SIUM magnesium 1.90 mg/dL 1.6-2. 6 normal Not Available [facility] [address] [place], [address] 10/01/2023 16:10:33 10/01/20 23 10/01/2023 LIPID PANEL WITH REFLE X triglyceride s 138 mg/dL 30-150 normal Refer ence Range s: <150 mg/dl Hedy l 150-1 99 mg/dl Borde rline High 200-4 99 mg/dl High >500 mg/dl Very High Not Available [facility] [address] [place], [address] 10/01/2023 16:10:34 10/01/20 23 10/01/2023 LIPID PANEL WITH REFLE X cholesterol 159 mg/dL 100-20 0 normal Not Available [facility] [address] [place], [address] 10/01/2023 16:10:34 10/01/20 23 10/01/2023 LIPID PANEL WITH REFLE X LDL cholesterol direct TNP mg/dL 0-100 Not Available [facility] [address] [place], [address] 10/01/2023 16:10:34 10/01/20 23 10/01/2023 LIPID PANEL WITH REFLE X LDL cholesterol calculated 90.0 mg/dL 0-100 normal Natio nal Xin stero l Educa tion Progr am sugge sts the follo wing refer ence range : Optim al <100 mg/dL Near optim al/ab ove optim al 100-1 29 mg/dL Borde rline high 130-1 59 mg/dL High 160-1 89 mg/dL Very high >190 mg/dL Not Available [facility] [address] [place], [address] 10/01/2023 16:10:34 10/01/20 23 10/01/2023 LIPID PANEL WITH REFLE X HDL cholesterol 41.6 mg/dL 40-60 normal Major risk facto r for CHD: <40 mg/dL Negat yady risk facto r for CHD: >=60 mg/dL Not Available [facility] [address] [place], [address] 10/01/2023 16:10:34 10/01/20 23 10/01/2023 LIPID PANEL WITH REFLE X chol HDL ratio 3.82 Risk CHOL/ HDL CHOL/ HDL Ratio Male Femal e 1/2 AVERA GE 3.43 3.27 AVERA GE 4.97 4.44 2 X AVERA GE 9.55 7.05 3 X AVERA GE 23.39 11.04 Not Available [facility] [address] [place], [address] 10/01/2023 16:10:34 10/01/20 23 10/01/2023 TSH REFLE X FREE T4 free T4 (free thyroxine) TNP NG/dL 0.9-1. 7 Not Available [facility] [address] [place] [address], [id number] 10/01/2023 16:10:36 10/01/20 23 10/01/2023 TSH REFLE X FREE T4 TSH reflex free T4 0.88 uIU/m L 0.27-4 .20 normal Not Available [facility] [address] [place] [address], [id number] 10/01/2023 16:10:36 10/01/20 23 10/01/2023 VITAM IN D 25-OH TOTAL vitamin D 25-oh total 35.1 NG/mL Refer ence Range : Defic ient <20 ng/mL Insuf ficie nt 21-29 ng/mL Suffi cient >30 ng/mL Not Available [facility] [address] [place] [address], [id number] 10/01/2023 16:19:12 10/01/20 23 10/01/2023 VITAM IN B12 AND FOLAT E vitamin B12 493 pg/mL 232-12 45 normal Not Available [facility] [address] [place] [address], [id number] 10/01/2023 16:19:43 10/01/20 23 10/01/2023 VITAM IN B12 AND FOLAT E folate 9.9 NG/mL 4.8-18 .8 normal Hedy l: >5.9 ng/mL Inter media te: 4.0-5 .9 ng/mL Defic ient: <4.0 ng/mL Not Available [facility] [address] [place] [address], [id number] 10/01/2023 16:19:43 10/01/20 23 10/05/2023 TOXAS SURE SELEC T 14 MINE-D IS report summary FINAL . ===== ===== ===== ===== ===== ===== ===== ===== ===== ===== ===== ===== ===== === TOXAS SURE SELEC T 14 MNIE-D IS ===== ===== ===== ===== ===== ===== ===== ===== ===== ===== ===== ===== ===== === Test Resul t Flag Units Drug Prese nt not Decla red for Presc ripti on Verif icati on Carbo xy-TH C >369 UNEXP ECTED ng/mg creat Carbo xy-TH C is a metab olite of tetra hydro canna binol (THC) . Sourc e of THC is most commo nly herba l marij uana or marij uana- based produ cts, but THC is also prese nt in a sched uled presc ripti on medic ation . Trace amoun ts of THC can be prese nt in hemp and canna bidio l (CBD) produ cts. This test is not inten ded to disti nguis h betwe en delta -9-te trahy droca nnabi nol, the predo minan t form of THC in most herba l or marij uana- based produ cts, and delta -8-te trahy droca nnabi nol. ===== ===== ===== ===== ===== ===== ===== ===== ===== ===== ===== ===== ===== === Test Resul t Flag Units Ref Range Creat inine 271 mg/dL >=20 ===== ===== ===== ===== ===== ===== ===== ===== ===== ===== ===== ===== ===== === Decla red Medic ation s: The cheryl ing and inter preta tion on this repor t are based on the follo wing decla red medic ation s. Unexp ected resul ts may arise from inacc uraci es in the decla red medic ation s. Not e: The testi ng scope of this panel does not inclu de follo repor yvonne medic ation s: Patrice gorman idate ===== ===== ===== ===== ===== ===== ===== ===== ===== ===== ===== ===== ===== === For clini gail consu ltati on, pleas e call . ===== ===== ===== ===== ===== ===== ===== ===== ===== ===== ===== ===== ===== === Not Available [facility] [address] [place] [address], [id number] 10/05/2023 18:08:14 10/01/20 23 10/05/2023 TOXAS SURE SELEC T 14 MINE-D IS urine creatinine 271 mg/dL . REFER ENCE RANGE : Ref Range >=20 Not Available [facility] [address] [place] [address], [id number] 10/05/2023 18:08:14 10/01/20 23 10/05/2023 TOXAS SURE SELEC T 14 MINE-D IS ethanol biomarkers NEGATI VE . Not Available [facility] [address] [place] [address], [id number] 10/05/2023 18:08:14 10/01/20 23 10/05/2023 TOXAS SURE SELEC T 14 MINE-D IS ethyl glucuronide NOT DETECT ED . Resul t Units : ng/mg creat Not Available [facility] [address] [place] [address], [id number] 10/05/2023 18:08:14 10/01/20 23 10/05/2023 TOXAS SURE SELEC T 14 MINE-D IS ethyl sulfate NOT DETECT ED . Resul t Units : ng/mg creat Not Available [facility] [address] [place] [address], [id number] 10/05/2023 18:08:14 10/01/20 23 10/05/2023 TOXAS SURE SELEC T 14 MINE-D IS amphetamines NEGATI VE . Not Available [facility] [address] [place] [address], [id number] 10/05/2023 18:08:14 10/01/20 23 10/05/2023 TOXAS SURE SELEC T 14 MINE-D IS methamphetam ine NOT DETECT ED . Resul t Units : ng/mg creat Not Available [facility] [address] [place] [address], [id number] 10/05/2023 18:08:14 10/01/20 23 10/05/2023 TOXAS SURE SELEC T 14 MINE-D IS amphetamine NOT DETECT ED . Resul t Units : ng/mg creat Not Available [facility] [address] [place] [address], [id number] 10/05/2023 18:08:14 10/01/20 23 10/05/2023 TOXAS SURE SELEC T 14 MINE-D IS MDMA (ecstasy) NOT DETECT ED . Resul t Units : ng/mg creat Not Available [facility] [address] [place] [address], [id number] 10/05/2023 18:08:14 10/01/20 23 10/05/2023 TOXAS SURE SELEC T 14 MINE-D IS mda (ecstasy mtb) NOT DETECT ED . Resul t Units : ng/mg creat Not Available [facility] [address] [place] [address], [id number] 10/05/2023 18:08:14 10/01/20 23 10/05/2023 TOXAS SURE SELEC T 14 MINE-D IS benzodiazepi iesha NEGATI VE . Not Available [facility] [address] [place] [address], [id number] 10/05/2023 18:08:14 10/01/20 23 10/05/2023 TOXAS SURE SELEC T 14 MINE-D IS diazepam NOT DETECT ED . Resul t Units : ng/mg creat Not Available [facility] [address] [place] [address], [id number] 10/05/2023 18:08:14 10/01/20 23 10/05/2023 TOXAS SURE SELEC T 14 MINE-D IS desmethyldia zepam NOT DETECT ED . Resul t Units : ng/mg creat Not Available [facility] [address] [place] [address], [id number] 10/05/2023 18:08:14 10/01/20 23 10/05/2023 TOXAS SURE SELEC T 14 MINE-D IS oxazepam NOT DETECT ED . Resul t Units : ng/mg creat Not Available [facility] [address] [place] [address], [id number] 10/05/2023 18:08:14 10/01/20 23 10/05/2023 TOXAS SURE SELEC T 14 MINE-D IS temazepam NOT DETECT ED . Resul t Units : ng/mg creat Expec yvonne metab olism of benzo diaze pine class drugs : Paren t Drug Detec yvonne Metab olite s ----- ----- - ----- ----- ----- ----- Diaze miguelina: Desme thyld iazep am, Temaz epam, Oxaze miguelina Chlor diaze poxid e: Desme thyld iazep am, Oxaze miguelina Clora zepat e: Desme thyld iazep am, Oxaze miguelina Halaz epam: Desme thyld iazep am, Oxaze miguelina Temaz epam: Oxaze miguelina Oxaze miguelina: None Not Available [facility] [address] [place] [address], [id number] 10/05/2023 18:08:14 10/01/20 23 10/05/2023 TOXAS SURE SELEC T 14 MINE-D IS alprazolam NOT DETECT ED . Resul t Units : ng/mg creat Not Available [facility] [address] [place] [address], [id number] 10/05/2023 18:08:14 10/01/20 23 10/05/2023 TOXAS SURE SELEC T 14 MINE-D IS alpha-hydrox yalprazolam NOT DETECT ED . Resul t Units : ng/mg creat Not Available [facility] [address] [place] [address], [id number] 10/05/2023 18:08:14 10/01/20 23 10/05/2023 TOXAS SURE SELEC T 14 MINE-D IS desalkylflur azepam NOT DETECT ED . Resul t Units : ng/mg creat Not Available [facility] [address] [place] [address], [id number] 10/05/2023 18:08:14 10/01/20 23 10/05/2023 TOXAS SURE SELEC T 14 MINE-D IS lorazepam NOT DETECT ED . Resul t Units : ng/mg creat Not Available [facility] [address] [place] [address], [id number] 10/05/2023 18:08:14 10/01/20 23 10/05/2023 TOXAS SURE SELEC T 14 MINE-D IS alpha-hydrox ytriazolam NOT DETECT ED . Resul t Units : ng/mg creat Not Available [facility] [address] [place] [address], [id number] 10/05/2023 18:08:14 10/01/20 23 10/05/2023 TOXAS SURE SELEC T 14 MINE-D IS clonazepam NOT DETECT ED . Resul t Units : ng/mg creat Not Available [facility] [address] [place] [address], [id number] 10/05/2023 18:08:14 10/01/20 23 10/05/2023 TOXAS SURE SELEC T 14 MINE-D IS 7-aminoclona zepam NOT DETECT ED . Resul t Units : ng/mg creat Not Available [facility] [address] [place] [address], [id number] 10/05/2023 18:08:14 10/01/20 23 10/05/2023 TOXAS SURE SELEC T 14 MINE-D IS midazolam NOT DETECT ED . Resul t Units : ng/mg creat Not Available [facility] [address] [place] [address], [id number] 10/05/2023 18:08:14 10/01/20 23 10/05/2023 TOXAS SURE SELEC T 14 MINE-D IS alpha-hydrox ymidazolam NOT DETECT ED . Resul t Units : ng/mg creat Not Available [facility] [address] [place] [address], [id number] 10/05/2023 18:08:14 10/01/20 23 10/05/2023 TOXAS SURE SELEC T 14 MINE-D IS flunitrazepa m NOT DETECT ED . Resul t Units : ng/mg creat Not Available [facility] [address] [place], [address] 10/05/2023 18:08:14 10/01/20 23 10/05/2023 TOXAS SURE SELEC T 14 MINE-D IS desmethylflu nitrazepam NOT DETECT ED . Resul t Units : ng/mg creat Not Available [facility] [address] [place], [address] 10/05/2023 18:08:14 10/01/20 23 10/05/2023 TOXAS SURE SELEC T 14 MINE-D IS cocaine metabolite NEGATI VE . Not Available [facility] [address] [place], [address] 10/05/2023 18:08:14 10/01/20 23 10/05/2023 TOXAS SURE SELEC T 14 MINE-D IS cocaine NOT DETECT ED . Resul t Units : ng/mg creat Not Available [facility] [address] [place], [address] 10/05/2023 18:08:14 10/01/20 23 10/05/2023 TOXAS SURE SELEC T 14 MINE-D IS benzoylecgon ine NOT DETECT ED . Resul t Units : ng/mg creat Not Available [facility] [address] [place], [address] 10/05/2023 18:08:14 10/01/20 23 10/05/2023 TOXAS SURE SELEC T 14 MINE-D IS cocaethylene NOT DETECT ED . Resul t Units : ng/mg creat Not Available [facility] [address] [place], [address] 10/05/2023 18:08:14 10/01/20 23 10/05/2023 TOXAS SURE SELEC T 14 MINE-D IS cannabinoids +POSIT YADY+ . Not Available [facility] [address] [place], [address] 10/05/2023 18:08:14 11/1710/05/2023 TOXAS SURE SELEC T 14 MINE-D IS carboxy-THC >369 . Resul t Units : ng/mg creat This test is not inten ded to disti jason ganesh nichol en the metab olite s of delta -9-te trahy droca nnabi nol, the predo minan t form of THC in most [facility] produ cts, and delta -8-te trahy droca nnabi nol, a psych oacti ve compo und gener ally synth esize d from other canna binoi ds. Not Available [facility] [address] [place], [address] 10/05/2023 18:08:14 10/01/2010/05/2023 TOXAS SURE SELEC T 14 MINE-D IS 6-acetylmorp britney scr NEGATI VE . Not Available [facility] [address] [place] [address], [id number] 10/05/2023 18:08:14 10/01/2010/05/2023 TOXAS SURE SELEC T 14 MINE-D IS 6-acetylmorp britney NOT DETECT ED . Resul t Units : ng/mg creat Not Available [facility] [address] [place] [address], [id number] 10/05/2023 18:08:14 10/01/20 23 10/05/2023 TOXAS SURE SELEC T 14 MINE-D IS opiate class NEGATI VE . Not Available [facility] [address] [place], [address] 10/05/2023 18:08:14 10/01/20 23 10/05/2023 TOXAS SURE SELEC T 14 MINE-D IS codeine NOT DETECT ED . Resul t Units : ng/mg creat Not Available [facility] [address] [place], [address] 10/05/2023 18:08:14 10/01/20 23 10/05/2023 TOXAS SURE SELEC T 14 MINE-D IS morphine NOT DETECT ED . Resul t Units : ng/mg creat Not Available [facility] [address] [place], [address] 10/05/2023 18:08:14 10/01/20 23 10/05/2023 TOXAS SURE SELEC T 14 MINE-D IS normorphine NOT DETECT ED . Resul t Units : ng/mg creat Not Available [facility] [address] [place] [address], [id number] 10/05/2023 18:08:14 10/01/20 23 10/05/2023 TOXAS SURE SELEC T 14 MINE-D IS norcodeine NOT DETECT ED . Resul t Units : ng/mg creat Not Available [facility] [address] [place] [address], [id number] 10/05/2023 18:08:14 10/01/20 23 10/05/2023 TOXAS SURE SELEC T 14 MINE-D IS hydrocodone NOT DETECT ED . Resul t Units : ng/mg creat Not Available [facility] [address] [place] [address], [id number] 10/05/2023 18:08:14 10/01/20 23 10/05/2023 TOXAS SURE SELEC T 14 MINE-D IS hydromorphon e NOT DETECT ED . Resul t Units : ng/mg creat Not Available [facility] [address] [place] [address], [id number] 10/05/2023 18:08:14 10/01/20 23 10/05/2023 TOXAS SURE SELEC T 14 MINE-D IS dihydrocodei ne NOT DETECT ED . Resul t Units : ng/mg creat Not Available [facility] [address] [place] [address], [id number] 10/05/2023 18:08:14 10/01/20 23 10/05/2023 TOXAS SURE SELEC T 14 MINE-D IS norhydrocodo ne NOT DETECT ED . Resul t Units : ng/mg creat Expec yvonne metab olism of opiat e class drugs : Paren t Drug Detec yvonne Metab olite s ----- ----- - ----- ----- ----- ----- Codei ne: Major : Morph ine, [place] deine Minor : [place] codon e, [place] morph one, Dihyd rocod eine, Norhy droco done, Normo rphin e Morph ine: Major : Normo rphin e Minor : [place] morph one [place] codon e: [place] morph one, Dihyd rocod eine, Norhy droco done [place] morph one: None Dihyd rocod eine: None Heroi n: 6-[place] tylmo rphin e (if inclu ded), Morph ine, Normo rphin e Codei ne, in small amoun ts in [place] to morph ine, is often detec yvonne when heroi n is the sourc e drug. Not Available [facility] [address] [place] [address], [id number] 10/05/2023 18:08:14 10/01/20 23 10/05/2023 TOXAS SURE SELEC T 14 MINE-D IS oxycodone class NEGATI VE . Not Available [facility] [address] [place] [address], [id number] 10/05/2023 18:08:14 10/01/20 23 10/05/2023 TOXAS SURE SELEC T 14 MINE-D IS oxycodone NOT DETECT ED . Resul t Units : ng/mg creat Not Available [facility] [address] [place] [address], [id number] 10/05/2023 18:08:14 10/01/20 23 10/05/2023 TOXAS SURE SELEC T 14 MINE-D IS oxymorphone NOT DETECT ED . Resul t Units : ng/mg creat Not Available [facility] [address] [place] [address], [id number] 10/05/2023 18:08:14 10/01/20 23 10/05/2023 TOXAS SURE SELEC T 14 MINE-D IS noroxycodone NOT DETECT ED . Resul t Units : ng/mg creat Not Available [facility] [facility] [address] [place] [address], [id number] 10/05/2023 18:08:14 10/01/20 23 10/05/2023 TOXAS SURE SELEC T 14 MINE-D IS noroxymorpho ne NOT DETECT ED . Resul t Units : ng/mg creat Expec yvonne metab olism of oxyco done class drugs : Paren t Drug Detec yvonne Metab olite s ----- ----- - ----- ----- ----- ----- Oxyco done: Oxymo rphon e, Norox ycodo ne, Norox ymorp leola Oxymo rphon e: Norox ymorp leola Not Available [facility] [address] [place] [address], [id number] 10/05/2023 18:08:14 10/01/20 23 10/05/2023 TOXAS SURE SELEC T 14 MINE-D IS methadone scr NEGATI VE . Not Available [facility] [address] [place] [address], [id number] 10/05/2023 18:08:14 10/01/20 23 10/05/2023 TOXAS SURE SELEC T 14 MINE-D IS methadone NOT DETECT ED . Resul t Units : ng/mg creat Not Available [facility] [address] [place] [address], [id number] 10/05/2023 18:08:14 10/01/20 23 10/05/2023 TOXAS SURE SELEC T 14 MINE-D IS EDDP (methadone mtb) NOT DETECT ED . Resul t Units : ng/mg creat Not Available [facility] [address] [place] [address], [id number] 10/05/2023 18:08:14 10/01/20 23 10/05/2023 TOXAS SURE SELEC T 14 MINE-D IS fentanyl analogues NEGATI VE . Not Available [facility] [address] [place] [address], [id number] 10/05/2023 18:08:14 10/01/20 23 10/05/2023 TOXAS SURE SELEC T 14 MINE-D IS fentanyl NOT DETECT ED . Resul t Units : ng/mg creat Not Available [facility] [address] [place] [address], [id number] 10/05/2023 18:08:14 10/01/20 23 10/05/2023 TOXAS SURE SELEC T 14 MINE-D IS norfentanyl NOT DETECT ED . Resul t Units : ng/mg creat Not Available [facility] [address] [place] [address], [id number] 10/05/2023 18:08:14 10/01/20 23 10/05/2023 TOXAS SURE SELEC T 14 MINE-D IS sufentanil NOT DETECT ED . Resul t Units : ng/mg creat Not Available [facility] [address] [place] [address], [id number] 10/05/2023 18:08:14 10/01/20 23 10/05/2023 TOXAS SURE SELEC T 14 MINE-D IS alfentanil NOT DETECT ED . Resul t Units : ng/mg creat Not Available [facility] [address] [place] [address], [id number] 10/05/2023 18:08:14 10/01/20 23 10/05/2023 TOXAS SURE SELEC T 14 MINE-D IS buprenorphin e scr NEGATI VE . Not Available [facility] [address] [place] [address], [id number] 10/05/2023 18:08:14 10/01/20 23 10/05/2023 TOXAS SURE SELEC T 14 MINE-D IS buprenorphin e NOT DETECT ED . Resul t Units : ng/mg creat Not Available [facility] [address] [place] [address], [id number] 10/05/2023 18:08:14 10/01/20 23 10/05/2023 TOXAS SURE SELEC T 14 MINE-D IS norbuprenorp britney NOT DETECT ED . Resul t Units : ng/mg creat Not Available [facility] [address] [place] [address], [id number] 10/05/2023 18:08:14 10/01/20 23 10/05/2023 TOXAS SURE SELEC T 14 MINE-D IS tapentadol scr NEGATI VE . Not Available [facility] [address] [place] [address], [id number] 10/05/2023 18:08:14 10/01/20 23 10/05/2023 TOXAS SURE SELEC T 14 MINE-D IS tapentadol NOT DETECT ED . Resul t Units : ng/mg creat Not Available [facility] [address] [place] [address], [id number] 10/05/2023 18:08:14 10/01/20 23 10/05/2023 TOXAS SURE SELEC T 14 MINE-D IS other opioids NEGATI VE . Not Available [facility] [address] [place] [address], [id number] 10/05/2023 18:08:14 10/01/20 23 10/05/2023 TOXAS SURE SELEC T 14 MINE-D IS tramadol NOT DETECT ED . Resul t Units : ng/mg creat Not Available [facility] [address] [place], [id number] 10/05/2023 18:08:14 10/01/20 23 10/05/2023 TOXAS SURE SELEC T 14 MINE-D IS O-desmethylt ramadol NOT DETECT ED . Resul t Units : ng/mg creat Not Available [facility] [address] [place], [address] 10/05/2023 18:08:14 10/01/20 23 10/05/2023 TOXAS SURE SELEC T 14 MINE-D IS N-desmethylt ramadol NOT DETECT ED . Resul t Units : ng/mg creat Not Available [facility] [address] [place] [address], [id number] 10/05/2023 18:08:14 10/01/20 23 10/05/2023 TOXAS SURE SELEC T 14 MINE-D IS barbiturates NEGATI VE . Not Available [facility] [address] [place] [address], [id number] 10/05/2023 18:08:14 10/01/20 23 10/05/2023 TOXAS SURE SELEC T 14 MINE-D IS amobarbital NOT DETECT ED . Not Available [facility] [address] [place] [address], [id number] 10/05/2023 18:08:14 10/01/20 23 10/05/2023 TOXAS SURE SELEC T 14 MINE-D IS barbital NOT DETECT ED . Not Available [facility] [address] [place] [address], [id number] 10/05/2023 18:08:14 10/01/20 23 10/05/2023 TOXAS SURE SELEC T 14 MINE-D IS butabarbital NOT DETECT ED . Not Available [facility] [address] [place] [address], [id number] 10/05/2023 18:08:14 10/01/20 23 10/05/2023 TOXAS SURE SELEC T 14 MINE-D IS butalbital NOT DETECT ED . Not Available [facility] [address] [place], [address] 10/05/2023 18:08:14 10/01/20 23 10/05/2023 TOXAS SURE SELEC T 14 MINE-D IS mephobarbita l NOT DETECT ED . Not Available [facility] [address] [place], [address] 10/05/2023 18:08:14 10/01/20 23 10/05/2023 TOXAS SURE SELEC T 14 MINE-D IS pentobarbita l NOT DETECT ED . Not Available [facility] [address] [place], [address] 10/05/2023 18:08:14 10/01/20 23 10/05/2023 TOXAS SURE SELEC T 14 MINE-D IS phenobarbita l NOT DETECT ED . Not Available [facility] [address] [place], [address] 10/05/2023 18:08:14 10/01/20 23 10/05/2023 TOXAS SURE SELEC T 14 MINE-D IS secobarbital NOT DETECT ED . Not Available [facility] [address] [place], [address] 10/05/2023 18:08:14 10/01/20 23 10/05/2023 TOXAS SURE SELEC T 14 MINE-D IS thiopental NOT DETECT ED . Not Available [facility] [address] [place], [address] 10/05/2023 18:08:14 10/01/20 23 10/05/2023 TOXAS SURE SELEC T 14 MINE-D IS other hallucinogen s NEGATI VE . Not Available [facility] [address] [place], [address] 10/05/2023 18:08:14 10/01/20 23 10/05/2023 TOXAS SURE SELEC T 14 MINE-D IS phencyclidin e NOT DETECT ED . Not Available [facility] [address] [place], [address] 10/05/2023 18:08:14 10/01/20 23 10/05/2023 TOXAS SURE SELEC T 14 MINE-D IS level of detection: COMMVALENTIN RAINES HOLDS ARE FOLLO WS: AMPHE TAMIN ES: 50 ng/mL BENZO DIAZE PINES : 20 ng/mL COCAI NE / METAB OLITE : 50 ng/mL JUANITA OL BIOMA RKERS : ETG-5 00 ng/mL ,ETS- 250 ng/mL CANNA BINOI DS: total -20 ng/mL , carbo xy-TH C-2 ng/mL 6-LINCOLN TYLMO RPHIN E: 10 ng/mL OPIAT E CLASS : 50 ng/mL OXYCO DONE CLASS : 50 ng/mL METHA DONE: 50 ng/mL BUPRE NORPH INE: bupre norph ine-1 .0 ng/mL , norbu preno rphin e-5 ng/mL FENTA NYL / ANALO GUES: fenta nyl-1 .0 ng/mL , other s-5.0 ng/mL TAPEN TADOL : 50 ng/mL TRAMA DOL: 50 ng/mL FRIEDA TURAT ES: 200 ng/mL PCP: 25 ng/mL This test was devel oped and its perfo rmanc e rayray cteri stics deter mined by [facility]. It has not been clear ed or appro vladislav by the Food and Drug Admin istra tion. Perfo rmed at: 01 - [facility] [address] [place] [address] Lab Direc tor: Galina erickson [facility] , Phone : [phone] Not Available [facility] [address] [place], [address] 10/05/2023 18:08:14 01/21/20 24 01/21/2024 COMPR EHENS YADY MET. PANEL sodium 141 mmol/ L 136-14 5 normal Not Available [facility] [address] [place], [address] 01/21/2024 20:41:26 01/21/20 24 01/21/2024 COMPR EHENS YADY MET. PANEL potassium 4.36 mmol/ L 3.5-5. 1 normal Not Available [facility] [address] [place], [address] 01/21/2024 20:41:26 01/21/20 24 01/21/2024 COMPR EHENS YADY MET. PANEL chloride 104 mmol/ L 98-107 normal Not Available [facility] [address] [place], [address] 01/21/2024 20:41:26 01/21/20 24 01/21/2024 COMPR EHENS YADY MET. PANEL carbon dioxide 25 mmol/ L 22-29 normal Not Available [facility] [address] [place], [address] 01/21/2024 20:41:26 01/21/20 24 01/21/2024 COMPR EHENS YADY MET. PANEL anion gap 17 mmol/ L 10-20 normal Not Available [facility] [address] [place], [address] 01/21/2024 20:41:26 01/21/20 24 01/21/2024 COMPR EHENS YADY MET. PANEL blood urea nitrogen 12 mg/dL 6-20 normal Not Available [facility] [address] [place], [address] 01/21/2024 20:41:26 01/21/20 24 01/21/2024 COMPR EHENS YADY MET. PANEL creatinine 1.09 mg/dL 0.70-1 .2 normal Not Available [facility] [address] [place], [address] 01/21/2024 20:41:26 01/21/2001/21/2024 COMPR EHENS YADY MET. PANEL estimated glomerular filt rate 88 GFR Value : mL/mi n/1.7 3 squar e meter s Calcu latio n: CKD-E PI Creat inine Equat ion (2020 ) Chron ic Kidne y Disea se is defin ed as eithe r of the follo wing prese nt for >= 3 month s: - GFR less than 60 mL/mi n/1.7 3 squar e meter s. - Micro album in:Ur . Creat inine Ratio >= 30 mg/g or other marke rs of freddy y damag e Kidne y failu re is less than 15 mL/mi n/1.7 3 squar e meter s This test is not perfo rmed in patie nts under the age of 18. Not Available [facility] [address] [place], [address] 01/21/2024 20:41:26 03/08/20 24 01/21/2024 COMPR EHENS YADY MET. PANEL glucose 120 mg/dL 70-106 high Not Available [facility] [address] [place] [address], [id number] 01/21/2024 20:41:26 01/21/20 24 01/21/2024 COMPR EHENS YADY MET. PANEL calcium 10.0 mg/dL 8.6-10 .3 normal Not Available [facility] [address] [place] [address], [id number] 01/21/2024 20:41:26 01/21/20 24 01/21/2024 COMPR EHENS YADY MET. PANEL bilirubin total 0.3 mg/dL 0.2-1. 2 normal Not Available [facility] [address] [place] [address], [id number] 01/21/2024 20:41:26 01/21/20 24 01/21/2024 COMPR EHENS YADY MET. PANEL aspartate amino transferase 26 U/L 5-40 normal Not Available [facility] [address] [place] [address], [id number] 01/21/2024 20:41:26 01/21/20 24 01/21/2024 COMPR EHENS YADY MET. PANEL alanine aminotransfe rase 38 U/L 5-41 normal Not Available [facility] [address] [place] [address], [id number] 01/21/2024 20:41:26 01/21/20 24 01/21/2024 COMPR EHENS YADY MET. PANEL total protein 7.5 g/dL 6.4-8. 3 normal Not Available [facility] [address] [place] [address], [id number] 01/21/2024 20:41:26 01/21/20 24 01/21/2024 COMPR EHENS YADY MET. PANEL albumin level 4.6 g/dL 3.5-5. 2 normal Not Available [facility] [address] [place] [address], [id number] 01/21/2024 20:41:26 01/21/20 24 01/21/2024 COMPR EHENS YADY MET. PANEL globulin 2.9 gm/dL 2.0-3. 5 normal Not Available [facility] [address] [place], [address] 01/21/2024 20:41:26 01/21/20 24 01/21/2024 COMPR EHENS YADY MET. PANEL albumin globulin ratio 1.6 % 1.1-2. 5 normal Not Available [facility] [address] [place] [address], [id number] 01/21/2024 20:41:26 01/21/20 24 01/21/2024 COMPR EHENS YADY MET. PANEL alkaline phosphatase 116 U/L 40-129 normal Not Available [facility] [address] [place] [address], [id number] 01/21/2024 20:41:26 01/21/20 24 01/21/2024 COMPL ETE BLOOD COUNT AUTO DIFF white blood count 13.88 K/uL 3.5-11 .0 high Not Available [facility] [address] [place] [address], [id number] 01/21/2024 21:05:32 01/21/20 24 01/21/2024 COMPL ETE BLOOD COUNT AUTO DIFF red blood count 4.93 M/uL 3.90-5 .50 normal Not Available [facility] [address] [place] [address], [id number] 01/21/2024 21:05:32 01/21/20 24 01/21/2024 COMPL ETE BLOOD COUNT AUTO DIFF hemoglobin 15.1 g/dL 14.0-1 8.0 normal Not Available [facility] [address] [place] [address], [id number] 01/21/2024 21:05:32 01/21/20 24 01/21/2024 COMPL ETE BLOOD COUNT AUTO DIFF hematocrit 45.9 % 42.0-5 4.0 normal Not Available [facility] [address] [place] [address], [id number] 01/21/2024 21:05:32 01/21/20 24 01/21/2024 COMPL ETE BLOOD COUNT AUTO DIFF mean corpuscular volume 93.1 fL 80.0-1 00.0 normal Not Available [facility] [address] [place] [address], [id number] 01/21/2024 21:05:32 01/21/20 24 01/21/2024 COMPL ETE BLOOD COUNT AUTO DIFF mean corpuscular hemoglobin 30.6 pg 25.4-3 4.6 normal Not Available [facility] [address] [place] [address], [id number] 01/21/2024 21:05:32 01/21/20 24 01/21/2024 COMPL ETE BLOOD COUNT AUTO DIFF mean corpuscular HGB conc 32.9 g/dL 31.0-3 7.0 normal Not Available [facility] [address] [place] [address], [id number] 01/21/2024 21:05:32 01/21/20 24 01/21/2024 COMPL ETE BLOOD COUNT AUTO DIFF red cell distribution width 12.7 % 11.5-1 4.5 normal Not Available [facility] [address] [place] [address], [id number] 01/21/2024 21:05:32 01/21/2001/21/2024 COMPL ETE BLOOD COUNT AUTO DIFF platelet count 402 K/uL 150-40 0 high Not Available [facility] [address] [place] [address], [id number] 01/21/2024 21:05:32 01/21/20 24 01/21/2024 COMPL ETE BLOOD COUNT AUTO DIFF neutrophils percent auto 62.1 % 35.0-6 6.0 normal Not Available [facility] [address] [place] [address], [id number] 01/21/2024 21:05:32 01/21/2001/21/2024 COMPL ETE BLOOD COUNT AUTO DIFF imm gran pct auto 0.4 % 0.0-0. 6 normal Not Available [facility] [address] [place] [address], [id number] 01/21/2024 21:05:32 01/21/20 24 01/21/2024 COMPL ETE BLOOD COUNT AUTO DIFF lymphocytes percent auto 22.0 % 25.0-4 5.0 low Not Available [facility] [address] [place] [address], [id number] 01/21/2024 21:05:32 01/21/20 24 01/21/2024 COMPL ETE BLOOD COUNT AUTO DIFF monocytes percent auto 12.4 % 0.0-13 .0 normal Not Available [facility] [address] [place] [address], [id number] 01/21/2024 21:05:32 01/21/20 24 01/21/2024 COMPL ETE BLOOD COUNT AUTO DIFF eosinophils percent auto 2.2 % 0.0-8. 0 normal Not Available [facility] [address] [place] [address], [id number] 01/21/2024 21:05:32 01/21/20 24 01/21/2024 COMPL ETE BLOOD COUNT AUTO DIFF basophils percent auto 0.9 % 0.0-1. 0 normal Not Available [facility] [address] [place] [address], [id number] 01/21/2024 21:05:32 01/21/20 24 01/21/2024 COMPL ETE BLOOD COUNT AUTO DIFF NRBC pct auto 0.0 /100_ WBC 0.0 normal Not Available [facility] [address] [place] [address], [id number] 01/21/2024 21:05:32 01/21/20 24 01/21/2024 COMPL ETE BLOOD COUNT AUTO DIFF neutrophils absolute auto 8.62 K/uL 1.5-7. 5 high Not Available [facility] [address] [place] [address], [id number] 01/21/2024 21:05:32 01/21/20 24 01/21/2024 COMPL ETE BLOOD COUNT AUTO DIFF imm gran abs auto 0.06 K/uL 0.00-0 .09 normal Not Available [facility] [address] [place] [address], [id number] 01/21/2024 21:05:32 01/21/20 24 01/21/2024 COMPL ETE BLOOD COUNT AUTO DIFF lymphocytes absolute auto 3.06 K/uL 0.8-4. 8 normal Not Available [facility] [address] [place] [address], [id number] 01/21/2024 21:05:32 01/21/20 24 01/21/2024 COMPL ETE BLOOD COUNT AUTO DIFF monocytes absolute auto 1.72 K/uL 0.4-1. 3 high Not Available [facility] [address] [place] [address], [id number] 01/21/2024 21:05:32 01/21/20 24 01/21/2024 COMPL ETE BLOOD COUNT AUTO DIFF eosinophils absolute auto 0.30 K/uL 0.0-0. 8 normal Not Available [facility] [address] [place] [address], [id number] 01/21/2024 21:05:32 01/21/20 24 01/21/2024 COMPL ETE BLOOD COUNT AUTO DIFF basophils absolute auto 0.12 K/uL 0.0-0. 6 normal Not Available [facility] [address] [place] [address], [id number] 01/21/2024 21:05:32 01/21/20 24 01/21/2024 COMPL ETE BLOOD COUNT AUTO DIFF NRBC abs auto 0.00 K/uL 0.00 normal Not Available [facility] [address] [place] [address], [id number] 01/21/2024 21:05:32 01/21/20 24 01/21/2024 HEMOG LOBIN A1C hemoglobin A1C % 6.7 % 4.0-5. 7 high % of the total HgB Inter preta tion ----- ----- ----- --- ----- ----- ----- - <5.7 Consi stent with the absen ce of diabe theresa 5.7-6 .4 Consi stent with incre ased risk for diabe theresa (pred iabet es) > or = to 6.5 Consi stent with Diabe theresa Not Available [facility] [address] [place] [address], [id number] 01/21/2024 22:20:17 04/28/20 24 04/28/2024 COMPL ETE BLOOD COUNT AUTO DIFF white blood count 8.03 K/uL 3.5-11 .0 normal Not Available [facility] [address] [place] [address], [id number] 04/28/2024 15:31:29 04/28/20 24 04/28/2024 COMPL ETE BLOOD COUNT AUTO DIFF red blood count 4.44 M/uL 3.90-5 .50 normal Not Available [facility] [address] [place] [address], [id number] 04/28/2024 15:31:29 04/28/20 24 04/28/2024 COMPL ETE BLOOD COUNT AUTO DIFF hemoglobin 13.8 g/dL 14.0-1 8.0 low Not Available [facility] [address] [place] [address], [id number] 04/28/2024 15:31:29 04/28/20 24 04/28/2024 COMPL ETE BLOOD COUNT AUTO DIFF hematocrit 41.1 % 42.0-5 4.0 low Not Available [facility] [address] [place] [address], [id number] 04/28/2024 15:31:29 04/28/20 24 04/28/2024 COMPL ETE BLOOD COUNT AUTO DIFF mean corpuscular volume 92.6 fL 80.0-1 00.0 normal Not Available [facility] [address] [place] [address], [id number] 04/28/2024 15:31:29 04/28/20 24 04/28/2024 COMPL ETE BLOOD COUNT AUTO DIFF mean corpuscular hemoglobin 31.1 pg 25.4-3 4.6 normal Not Available [facility] [address] [place] [address], [id number] 04/28/2024 15:31:29 04/28/20 24 04/28/2024 COMPL ETE BLOOD COUNT AUTO DIFF mean corpuscular HGB conc 33.6 g/dL 31.0-3 7.0 normal Not Available [facility] [address] [place] [address], [id number] 04/28/2024 15:31:29 04/28/20 24 04/28/2024 COMPL ETE BLOOD COUNT AUTO DIFF red cell distribution width 13.2 % 11.5-1 4.5 normal Not Available [facility] [address] [place] [address], [id number] 04/28/2024 15:31:29 04/28/20 24 04/28/2024 COMPL ETE BLOOD COUNT AUTO DIFF platelet count 331 K/uL 150-40 0 normal Not Available [facility] [address] [place] [address], [id number] 04/28/2024 15:31:29 04/28/20 24 04/28/2024 COMPL ETE BLOOD COUNT AUTO DIFF neutrophils percent auto 57.7 % 35.0-6 6.0 normal Not Available [facility] [address] [place] [address], [id number] 04/28/2024 15:31:29 04/28/20 24 04/28/2024 COMPL ETE BLOOD COUNT AUTO DIFF imm gran pct auto 0.5 % 0.0-0. 6 normal Not Available [facility] [address] [place] [address], [id number] 04/28/2024 15:31:29 04/28/20 24 04/28/2024 COMPL ETE BLOOD COUNT AUTO DIFF lymphocytes percent auto 25.3 % 25.0-4 5.0 normal Not Available [facility] [address] [place] [address], [id number] 04/28/2024 15:31:29 04/28/20 24 04/28/2024 COMPL ETE BLOOD COUNT AUTO DIFF monocytes percent auto 12.1 % 0.0-13 .0 normal Not Available [facility] [address] [place] [address], [id number] 04/28/2024 15:31:29 04/28/20 24 04/28/2024 COMPL ETE BLOOD COUNT AUTO DIFF eosinophils percent auto 3.5 % 0.0-8. 0 normal Not Available [facility] [address] [place] [address], [id number] 04/28/2024 15:31:29 04/28/20 24 04/28/2024 COMPL ETE BLOOD COUNT AUTO DIFF basophils percent auto 0.9 % 0.0-1. 0 normal Not Available [facility] [address] [place] [address], [id number] 04/28/2024 15:31:29 04/28/20 24 04/28/2024 COMPL ETE BLOOD COUNT AUTO DIFF NRBC pct auto 0.0 /100_ WBC 0.0 normal Not Available [facility] [address] [place] [address], [id number] 04/28/2024 15:31:29 04/28/20 24 04/28/2024 COMPL ETE BLOOD COUNT AUTO DIFF neutrophils absolute auto 4.64 K/uL 1.5-7. 5 normal Not Available [facility] [address] [place] [address], [id number] 04/28/2024 15:31:29 04/28/20 24 04/28/2024 COMPL ETE BLOOD COUNT AUTO DIFF imm gran abs auto 0.04 K/uL 0.00-0 .09 normal Not Available [facility] [address] [place] [address], [id number] 04/28/2024 15:31:29 04/28/20 24 04/28/2024 COMPL ETE BLOOD COUNT AUTO DIFF lymphocytes absolute auto 2.03 K/uL 0.8-4. 8 normal Not Available [facility] [address] [place] [address], [id number] 04/28/2024 15:31:29 04/28/20 24 04/28/2024 COMPL ETE BLOOD COUNT AUTO DIFF monocytes absolute auto 0.97 K/uL 0.4-1. 3 normal Not Available [facility] [address] [place] [address], [id number] 04/28/2024 15:31:29 04/28/20 24 04/28/2024 COMPL ETE BLOOD COUNT AUTO DIFF eosinophils absolute auto 0.28 K/uL 0.0-0. 8 normal Not Available [facility] [address] [place] [address], [id number] 04/28/2024 15:31:29 04/28/20 24 04/28/2024 COMPL ETE BLOOD COUNT AUTO DIFF basophils absolute auto 0.07 K/uL 0.0-0. 6 normal Not Available [facility] [address] [place] [address], [id number] 04/28/2024 15:31:29 04/28/20 24 04/28/2024 COMPL ETE BLOOD COUNT AUTO DIFF NRBC abs auto 0.00 K/uL 0.00 normal Not Available [facility] Department [address] [place] [address], [id number] 04/28/2024 15:31:29 04/28/20 24 04/28/2024 COMPR EHENS YADY MET. PANEL sodium 138 mmol/ L 136-14 5 normal Not Available [facility] [address] [place] [address], [id number] 04/28/2024 16:26:43 04/28/20 24 04/28/2024 COMPR EHENS YADY MET. PANEL potassium 4.32 mmol/ L 3.5-5. 1 normal Not Available [facility] [address] [place] [address], [id number] 04/28/2024 16:26:43 04/28/20 24 04/28/2024 COMPR EHENS YADY MET. PANEL chloride 103 mmol/ L 98-107 normal Not Available [facility] [address] [place] [address], [id number] 04/28/2024 16:26:43 04/28/20 24 04/28/2024 COMPR EHENS YADY MET. PANEL carbon dioxide 24 mmol/ L 22-29 normal Not Available [facility] [address] [place], [address] 04/28/2024 16:26:43 04/28/20 24 04/28/2024 COMPR EHENS YADY MET. PANEL anion gap 15 mmol/ L 10-20 normal Not Available [facility] [address] [place], [address] 04/28/2024 16:26:43 04/28/20 24 04/28/2024 COMPR EHENS YADY MET. PANEL blood urea nitrogen 11 mg/dL 6-20 normal Not Available [facility] Department [address] [place], [address] 04/28/2024 16:26:43 04/28/20 24 04/28/2024 COMPR EHENS YADY MET. PANEL creatinine 0.99 mg/dL 0.67-1 .17 normal Not Available [facility] [address] [place], [address] 04/28/2024 16:26:43 04/28/20 24 04/28/2024 COMPR EHENS YADY MET. PANEL estimated glomerular filt rate 99 GFR Value : mL/mi n/1.7 3 squar e meter s Calcu latio n: CKD-E PI Creat inine Equat ion (2020 ) Chron ic Kidne y Disea se is defin ed as eithe r of the follo wing prese nt for >= 3 month s: - GFR less than 60 mL/mi n/1.7 3 squar e meter s. - Micro album in:Ur . Creat inine Ratio >= 30 mg/g or other marke rs of kidne y damag e Kidne y failu re is less than 15 mL/mi n/1.7 3 squar e meter s This test is not perfo rmed in patie nts under the age of 18. Not Available [facility] [address] [place], [address] 04/28/2024 16:26:43 04/28/20 24 04/28/2024 COMPR EHENS YADY MET. PANEL glucose 134 mg/dL 70-106 high Not Available [facility] [address] [place], [address] 04/28/2024 16:26:43 04/28/20 24 04/28/2024 COMPR EHENS YADY MET. PANEL calcium 9.1 mg/dL 8.6-10 .3 normal Not Available [facility] [address] [place], [address] 04/28/2024 16:26:43 04/28/20 24 04/28/2024 COMPR EHENS YADY MET. PANEL bilirubin total 0.3 mg/dL 0.2-1. 2 normal Not Available [facility] [address] [place], [address] 04/28/2024 16:26:43 04/28/20 24 04/28/2024 COMPR EHENS YADY MET. PANEL aspartate amino transferase 24 U/L 5-40 normal Not Available [facility] Department [address] [place], [address] 04/28/2024 16:26:43 04/28/20 24 04/28/2024 COMPR EHENS YADY MET. PANEL alanine aminotransfe rase 37 U/L 5-41 normal Not Available [facility] Department [address] [place], [address] 04/28/2024 16:26:43 04/28/20 24 04/28/2024 COMPR EHENS YADY MET. PANEL total protein 6.8 g/dL 6.4-8. 3 normal Not Available [facility] [address] [place], [address] 04/28/2024 16:26:43 04/28/20 24 04/28/2024 COMPR EHENS YADY MET. PANEL albumin level 4.2 g/dL 3.5-5. 2 normal Not Available [facility] [address] [place], [address] 04/28/2024 16:26:43 04/28/20 24 04/28/2024 COMPR EHENS YADY MET. PANEL globulin 2.6 gm/dL 2.0-3. 5 normal Not Available [facility] [address] [place], [address] 04/28/2024 16:26:43 04/28/20 24 04/28/2024 COMPR EHENS YADY MET. PANEL albumin globulin ratio 1.6 % 1.1-2. 5 normal Not Available [facility] [address] [place], [address] 04/28/2024 16:26:43 04/28/20 24 04/28/2024 COMPR EHENS YADY MET. PANEL alkaline phosphatase 99 U/L 40-129 normal Not Available [facility] [address] [place], [address] 04/28/2024 16:26:43 04/28/20 24 04/28/2024 HEMOG LOBIN A1C hemoglobin A1C % 6.6 % 4.0-5. 7 high % of the total HgB Inter preta tion ----- ----- ----- --- ----- ----- ----- - <5.7 Consi stent with the absen ce of diabe theresa 5.7-6 .4 Consi stent with incre ased risk for diabe theresa (pred iabet es) > or = to 6.5 Consi stent with Diabe theresa Not Available [facility] [address] [place], [address] 04/28/2024 16:44:30 04/28/20 24 05/10/2024 TOXAS SURE SELEC T 14 MINE-D IS report summary FINAL . ===== ===== ===== ===== ===== ===== ===== ===== ===== ===== ===== ===== ===== === TOXAS SURE SELEC T 14 MINE-D IS ===== ===== ===== ===== ===== ===== ===== ===== ===== ===== ===== ===== ===== === Test Resul t Flag Units Drug Prese nt not Decla red for Presc ripti on Verif icati on Carbo xy-TH C >1515 UNEXP ECTED ng/mg creat Carbo xy-TH C is a metab olite of tetra hydro canna binol (THC) . Sourc e of THC is most commo nly herba l marij uana or marij uana- based produ cts, but THC is also prese nt in a sched uled presc ripti on medic ation . Trace amoun ts of THC can be prese nt in hemp and canna bidio l (CBD) produ cts. This test is not inten ded to disti nguis h betwe en delta -9-te trahy droca nnabi nol, the predo minan t form of THC in most herba l or marij uana- based produ cts, and delta -8-te trahy droca nnabi nol. ===== ===== ===== ===== ===== ===== ===== ===== ===== ===== ===== ===== ===== === Test Resul t Flag Units Ref Range Creat inine 66 mg/dL >=20 ===== ===== ===== ===== ===== ===== ===== ===== ===== ===== ===== ===== ===== === Decla red Medic ation s: The cheryl ing and inter preta tion on this repor t are based on the follo wing decla red medic ation s. Unexp ected resul ts may arise from inacc uraci es in the decla red medic ation s. Not e: The testi ng scope of this panel does not inclu de follo wing repor yvonne medic ation s: Methy lphen idate ===== ===== ===== ===== ===== ===== ===== ===== ===== ===== ===== ===== ===== === For clini gail consu ltati on, pleas e call . ===== ===== ===== ===== ===== ===== ===== ===== ===== ===== ===== ===== ===== === Not Available [facility] [address] [place] [address], [id number] 05/10/2024 13:09:23 04/28/20 24 05/10/2024 TOXAS SURE SELEC T 14 MINE-D IS urine creatinine 66 mg/dL . REFER ENCE RANGE : Ref Range >=20 Not Available [facility] [address] [place] [address], [id number] 05/10/2024 13:09:04/28/20 24 05/10/2024 TOXAS SURE SELEC T 14 MINE-D IS ethanol biomarkers NEGATI VE . Not Available [facility] [address] [place] [address], [id number] 05/10/2024 13:09:23 04/28/20 24 05/10/2024 TOXAS SURE SELEC T 14 MINE-D IS ethyl glucuronide NOT DETECT ED . Resul t Units : ng/mg creat Not Available [facility] [address] [place] [address], [id number] 05/10/2024 13:09:23 04/28/20 24 05/10/2024 TOXAS SURE SELEC T 14 MINE-D IS ethyl sulfate NOT DETECT ED . Resul t Units : ng/mg creat Not Available [facility] [address] [place] [address], [id number] 05/10/2024 13:09:23 04/28/20 24 05/10/2024 TOXAS SURE SELEC T 14 MINE-D IS amphetamines NEGATI VE . Not Available [facility] [address] [place] [address], [id number] 05/10/2024 13:09:23 04/28/20 24 05/10/2024 TOXAS SURE SELEC T 14 MINE-D IS methamphetam ine NOT DETECT ED . Resul t Units : ng/mg creat Not Available [facility] [address] [place] [address], [id number] 05/10/2024 13:09:23 04/28/20 24 05/10/2024 TOXAS SURE SELEC T 14 MINE-D IS amphetamine NOT DETECT ED . Resul t Units : ng/mg creat Not Available [facility] [address] [place] [address], [id number] 05/10/2024 13:09:23 04/28/20 24 05/10/2024 TOXAS SURE SELEC T 14 MINE-D IS MDMA (ecstasy) NOT DETECT ED . Resul t Units : ng/mg creat Not Available [facility] [address] [place] [address], [id number] 05/10/2024 13:09:23 04/28/20 24 05/10/2024 TOXAS SURE SELEC T 14 MINE-D IS mda (ecstasy mtb) NOT DETECT ED . Resul t Units : ng/mg creat Not Available [facility] [address] [place] [address], [id number] 05/10/2024 13:09:23 04/28/20 24 05/10/2024 TOXAS SURE SELEC T 14 MINE-D IS benzodiazepi iesha NEGATI VE . Not Available [facility] [address] [place] [address], [id number] 05/10/2024 13:09:23 04/28/20 24 05/10/2024 TOXAS SURE SELEC T 14 MINE-D IS diazepam NOT DETECT ED . Resul t Units : ng/mg creat Not Available [facility] [address] [place] [address], [id number] 05/10/2024 13:09:23 04/28/20 24 05/10/2024 TOXAS SURE SELEC T 14 MINE-D IS desmethyldia zepam NOT DETECT ED . Resul t Units : ng/mg creat Not Available [facility] [address] [place] [address], [id number] 05/10/2024 13:09:23 04/28/20 24 05/10/2024 TOXAS SURE SELEC T 14 MINE-D IS oxazepam NOT DETECT ED . Resul t Units : ng/mg creat Not Available [facility] [address] [place] [address], [id number] 05/10/2024 13:09:23 04/28/20 24 05/10/2024 TOXAS SURE SELEC T 14 MINE-D IS temazepam NOT DETECT ED . Resul t Units : ng/mg creat Expec yvonne metab olism of benzo diaze pine class drugs : Paren t Drug Detec yvonne Metab olite s ----- ----- - ----- ----- ----- ----- Diaze miguelina: Desme thyld iazep am, Temaz epam, Oxaze miguelina Chlor diaze poxid e: Desme thyld iazep am, Oxaze miguelina Clora zepat e: Desme thyld iazep am, Oxaze miguelina Halaz epam: Desme thyld iazep am, Oxaze miguelina Temaz epam: Oxaze miguelina Oxaze miguelina: None Not Available [facility] [address] [place] [address], [id number] 05/10/2024 13:09:23 04/28/20 24 05/10/2024 TOXAS SURE SELEC T 14 MINE-D IS alprazolam NOT DETECT ED . Resul t Units : ng/mg creat Not Available [facility] [address] [place] [address], [id number] 05/10/2024 13:09:23 04/28/20 24 05/10/2024 TOXAS SURE SELEC T 14 MINE-D IS alpha-hydrox yalprazolam NOT DETECT ED . Resul t Units : ng/mg creat Not Available [facility] [address] [place] [address], [id number] 05/10/2024 13:09:23 04/28/20 24 05/10/2024 TOXAS SURE SELEC T 14 MINE-D IS desalkylflur azepam NOT DETECT ED . Resul t Units : ng/mg creat Not Available [facility] [address] [place] [address], [id number] 05/10/2024 13:09:23 04/28/20 24 05/10/2024 TOXAS SURE SELEC T 14 MINE-D IS lorazepam NOT DETECT ED . Resul t Units : ng/mg creat Not Available [facility] [address] [place] [address], [id number] 05/10/2024 13:09:23 04/28/20 24 05/10/2024 TOXAS SURE SELEC T 14 MINE-D IS alpha-hydrox ytriazolam NOT DETECT ED . Resul t Units : ng/mg creat Not Available [facility] [address] [place] [address], [id number] 05/10/2024 13:09:23 04/28/20 24 05/10/2024 TOXAS SURE SELEC T 14 MIEN-D IS clonazepam NOT DETECT ED . Resul t Units : ng/mg creat Not Available [facility] [address] [place] [address], [id number] 05/10/2024 13:09:23 04/28/20 24 05/10/2024 TOXAS SURE SELEC T 14 MINE-D IS 7-aminoclona zepam NOT DETECT ED . Resul t Units : ng/mg creat Not Available [facility] [address] [place] [address], [id number] 05/10/2024 13:09:23 04/28/20 24 05/10/2024 TOXAS SURE SELEC T 14 MINE-D IS midazolam NOT DETECT ED . Resul t Units : ng/mg creat Not Available [facility] [address] [place] [address], [id number] 05/10/2024 13:09:23 04/28/20 24 05/10/2024 TOXAS SURE SELEC T 14 MINE-D IS alpha-hydrox ymidazolam NOT DETECT ED . Resul t Units : ng/mg creat Not Available [facility] [address] [place] [address], [id number] 05/10/2024 13:09:23 04/28/20 24 05/10/2024 TOXAS SURE SELEC T 14 MINE-D IS flunitrazepa m NOT DETECT ED . Resul t Units : ng/mg creat Not Available [facility] [address] [place] [address], [id number] 05/10/2024 13:09:23 04/28/20 24 05/10/2024 TOXAS SURE SELEC T 14 MINE-D IS desmethylflu nitrazepam NOT DETECT ED . Resul t Units : ng/mg creat Not Available [facility] [address] [place] [address], [id number] 05/10/2024 13:09:23 04/28/20 24 05/10/2024 TOXAS SURE SELEC T 14 MINE-D IS cocaine metabolite NEGATI VE . Not Available [facility] [address] [place] [address], [id number] 05/10/2024 13:09:23 04/28/20 24 05/10/2024 TOXAS SURE SELEC T 14 MINE-D IS cocaine NOT DETECT ED . Resul t Units : ng/mg creat Not Available [facility] [address] [place] [address], [id number] 05/10/2024 13:09:23 04/28/20 24 05/10/2024 TOXAS SURE SELEC T 14 MINE-D IS benzoylecgon ine NOT DETECT ED . Resul t Units : ng/mg creat Not Available [facility] [address] [place] [address], [id number] 05/10/2024 13:09:23 04/28/20 24 05/10/2024 TOXAS SURE SELEC T 14 MINE-D IS cocaethylene NOT DETECT ED . Resul t Units : ng/mg creat Not Available [facility] [address] [place] [address], [id number] 05/10/2024 13:09:23 04/28/20 24 05/10/2024 TOXAS SURE SELEC T 14 MINE-D IS cannabinoids +POSIT YADY+ . Not Available [facility] [address] [place] [address], [id number] 05/10/2024 13:09:23 04/28/20 24 05/10/2024 TOXAS SURE SELEC T 14 MINE-D IS carboxy-THC >1515 . Resul t Units : ng/mg creat This test is not inten ded to disti nguis h betwe en the metab olite s of delta -9-te trahy droca nnabi nol, the predo minan t form of THC in most herba l or marij uana- based produ cts, and delta -8-te trahy droca nnabi nol, a psych oacti ve compo und gener ally synth esize d from other canna binoi ds. Not Available [facility] [address] [place] [address], [id number] 05/10/2024 13:09:23 04/28/20 24 05/10/2024 TOXAS SURE SELEC T 14 MINE-D IS 6-acetylmorp britney scr NEGATI VE . Not Available [facility] [address] [place] [address], [id number] 05/10/2024 13:09:23 04/28/20 24 05/10/2024 TOXAS SURE SELEC T 14 MINE-D IS 6-acetylmorp britney NOT DETECT ED . Resul t Units : ng/mg creat Not Available [facility] [address] [place] [address], [id number] 05/10/2024 13:09:23 04/28/20 24 05/10/2024 TOXAS SURE SELEC T 14 MINE-D IS opiate class NEGATI VE . Not Available [facility] [address] [place] [address], [id number] 05/10/2024 13:09:23 04/28/20 24 05/10/2024 TOXAS SURE SELEC T 14 MINE-D IS codeine NOT DETECT ED . Resul t Units : ng/mg creat Not Available [facility] [address] [place] [address], [id number] 05/10/2024 13:09:23 04/28/20 24 05/10/2024 TOXAS SURE SELEC T 14 MINE-D IS morphine NOT DETECT ED . Resul t Units : ng/mg creat Not Available [facility] [address] [place] [address], [id number] 05/10/2024 13:09:23 04/28/20 24 05/10/2024 TOXAS SURE SELEC T 14 MINE-D IS normorphine NOT DETECT ED . Resul t Units : ng/mg creat Not Available [facility] [address] [place] [address], [id number] 05/10/2024 13:09:23 04/28/20 24 05/10/2024 TOXAS SURE SELEC T 14 MINE-D IS norcodeine NOT DETECT ED . Resul t Units : ng/mg creat Not Available [facility] [address] [place] [address], [id number] 05/10/2024 13:09:23 04/28/20 24 05/10/2024 TOXAS SURE SELEC T 14 MINE-D IS hydrocodone NOT DETECT ED . Resul t Units : ng/mg creat Not Available [facility] [address] [place], [address] 05/10/2024 13:09:23 04/28/20 24 05/10/2024 TOXAS SURE SELEC T 14 MINE-D IS hydromorphon e NOT DETECT ED . Resul t Units : ng/mg creat Not Available [facility] [address] [place], [address] 05/10/2024 13:09:23 04/28/20 24 05/10/2024 TOXAS SURE SELEC T 14 MINE-D IS dihydrocodei ne NOT DETECT ED . Resul t Units : ng/mg creat Not Available [facility] [address] [place], [address] 05/10/2024 13:09:23 04/28/20 24 05/10/2024 TOXAS SURE SELEC T 14 MINE-D IS norhydrocodo ne NOT DETECT ED . Resul t Units : ng/mg creat Expec yvonne metab olism of opiat e class drugs : Paren t Drug Detec yvonne Metab olite s ----- ----- - ----- ----- ----- ----- Codei ne: Major : Morph ine, [place] deine Minor : [place] codon e, [place] morph one, Dihyd rocod eine, Norhy droco done, Normo rphin e Morph ine: Major : Normo rphin e Minor : [place] morph one [place] codon e: [place] morph one, Dihyd rocod eine, Norhy droco done [place] morph one: None Dihyd rocod eine: None Heroi n: 6-[place] tylmo rphin e (if inclu ded), Morph ine, Normo rphin e Codei ne, in small amoun ts in [place]uren r[place] to morph ine, is often detec yvonne when heroi n is the sourc e drug. Not Available [facility] [address] [place], [address] 05/10/2024 13:09:23 04/28/20 24 05/10/2024 TOXAS SURE SELEC T 14 MINE-D IS oxycodone class NEGATI VE . Not Available [facility] [address] [place], [id number] 05/10/2024 13:09:23 04/28/20 24 05/10/2024 TOXAS SURE SELEC T 14 MINE-D IS oxycodone NOT DETECT ED . Resul t Units : ng/mg creat Not Available [facility] [address] [place] [address], [id number] 05/10/2024 13:09:23 04/28/20 24 05/10/2024 TOXAS SURE SELEC T 14 MINE-D IS oxymorphone NOT DETECT ED . Resul t Units : ng/mg creat Not Available [facility] [address] [place] [address], [id number] 05/10/2024 13:09:23 04/28/20 24 05/10/2024 TOXAS SURE SELEC T 14 MINE-D IS noroxycodone NOT DETECT ED . Resul t Units : ng/mg creat Not Available [facility] [address] [place] [address], [id number] 05/10/2024 13:09:23 04/28/20 24 05/10/2024 TOXAS SURE SELEC T 14 MINE-D IS noroxymorpho ne NOT DETECT ED . Resul t Units : ng/mg creat Expec yvonne metab olism of oxyco done class drugs : Paren t Drug Detec yvonne Metab olite s ----- ----- - ----- ----- ----- ----- Oxyco done: Oxymo rphon e, Norox ycodo ne, Norox ymorp leola Oxymo rphon e: Norox ymorp leola Not Available [facility] [address] [place] [address], [id number] 05/10/2024 13:09:23 04/28/20 24 05/10/2024 TOXAS SURE SELEC T 14 MINE-D IS methadone scr NEGATI VE . Not Available [facility] [address] [place], [address] 05/10/2024 13:09:23 04/28/20 24 05/10/2024 TOXAS SURE SELEC T 14 MINE-D IS methadone NOT DETECT ED . Resul t Units : ng/mg creat Not Available [facility] [address] [place] [address], [id number] 05/10/2024 13:09:23 04/28/20 24 05/10/2024 TOXAS SURE SELEC T 14 MINE-D IS EDDP (methadone mtb) NOT DETECT ED . Resul t Units : ng/mg creat Not Available [facility] [address] [place] [address], [id number] 05/10/2024 13:09:23 04/28/20 24 05/10/2024 TOXAS SURE SELEC T 14 MINE-D IS fentanyl analogues NEGATI VE . Not Available [facility] [address] [place] [address], [id number] 05/10/2024 13:09:23 04/28/20 24 05/10/2024 TOXAS SURE SELEC T 14 MINE-D IS fentanyl NOT DETECT ED . Resul t Units : ng/mg creat Not Available [facility] [address] [place] [address], [id number] 05/10/2024 13:09:23 04/28/20 24 05/10/2024 TOXAS SURE SELEC T 14 MINE-D IS norfentanyl NOT DETECT ED . Resul t Units : ng/mg creat Not Available [facility] [address] [place] [address], [id number] 05/10/2024 13:09:23 04/28/20 24 05/10/2024 TOXAS SURE SELEC T 14 MINE-D IS sufentanil NOT DETECT ED . Resul t Units : ng/mg creat Not Available [facility] [address] [place] [address], [id number] 05/10/2024 13:09:23 04/28/20 24 05/10/2024 TOXAS SURE SELEC T 14 MINE-D IS alfentanil NOT DETECT ED . Resul t Units : ng/mg creat Not Available [facility] [address] [place] [address], [id number] 05/10/2024 13:09:23 04/28/20 24 05/10/2024 TOXAS SURE SELEC T 14 MINE-D IS buprenorphin e scr NEGATI VE . Not Available [facility] [address] [place] [address], [id number] 05/10/2024 13:09:23 04/28/20 24 05/10/2024 TOXAS SURE SELEC T 14 MINE-D IS buprenorphin e NOT DETECT ED . Resul t Units : ng/mg creat Not Available [facility] [address] [place], [address] 05/10/2024 13:09:23 04/28/20 24 05/10/2024 TOXAS SURE SELEC T 14 MINE-D IS norbuprenorp britney NOT DETECT ED . Resul t Units : ng/mg creat Not Available [facility] [address] [place], [id number] 05/10/2024 13:09:23 04/28/20 24 05/10/2024 TOXAS SURE SELEC T 14 MINE-D IS tapentadol scr NEGATI VE . Not Available [facility] [address] [place] [address], [id number] 05/10/2024 13:09:23 04/28/20 24 05/10/2024 TOXAS SURE SELEC T 14 MINE-D IS tapentadol NOT DETECT ED . Resul t Units : ng/mg creat Not Available [facility] [address] [place] [address], [id number] 05/10/2024 13:09:23 04/28/20 24 05/10/2024 TOXAS SURE SELEC T 14 MINE-D IS other opioids NEGATI VE . Not Available [facility] [address] [place] [address], [id number] 05/10/2024 13:09:23 04/28/20 24 05/10/2024 TOXAS SURE SELEC T 14 MINE-D IS tramadol NOT DETECT ED . Resul t Units : ng/mg creat Not Available [facility] [address] [place], [id number] 05/10/2024 13:09:23 04/28/20 24 05/10/2024 TOXAS SURE SELEC T 14 MINE-D IS O-desmethylt ramadol NOT DETECT ED . Resul t Units : ng/mg creat Not Available [facility] [address] [place], [address] 05/10/2024 13:09:23 04/28/20 24 05/10/2024 TOXAS SURE SELEC T 14 MINE-D IS N-desmethylt ramadol NOT DETECT ED . Resul t Units : ng/mg creat Not Available [facility] [address] [place] [address], [id number] 05/10/2024 13:09:23 04/28/20 24 05/10/2024 TOXAS SURE SELEC T 14 MINE-D IS barbiturates NEGATI VE . Not Available [facility] [address] [place] [address], [id number] 05/10/2024 13:09:23 04/28/20 24 05/10/2024 TOXAS SURE SELEC T 14 MINE-D IS amobarbital NOT DETECT ED . Not Available [facility] [address] [place] [address], [id number] 05/10/2024 13:09:23 04/28/20 24 05/10/2024 TOXAS SURE SELEC T 14 MINE-D IS barbital NOT DETECT ED . Not Available [facility] [address] [place] [address], [id number] 05/10/2024 13:09:23 04/28/20 24 05/10/2024 TOXAS SURE SELEC T 14 MINE-D IS butabarbital NOT DETECT ED . Not Available [facility] [address] [place] [address], [id number] 05/10/2024 13:09:23 04/28/20 24 05/10/2024 TOXAS SURE SELEC T 14 MINE-D IS butalbital NOT DETECT ED . Not Available [facility] [address] [place] [address], [id number] 05/10/2024 13:09:23 04/28/20 24 05/10/2024 TOXAS SURE SELEC T 14 MINE-D IS mephobarbita l NOT DETECT ED . Not Available [facility] [address] [place] [address], [id number] 05/10/2024 13:09:23 04/28/20 24 05/10/2024 TOXAS SURE SELEC T 14 MINE-D IS pentobarbita l NOT DETECT ED . Not Available [facility] [address] [place] [address], [id number] 05/10/2024 13:09:23 04/28/20 24 05/10/2024 TOXAS SURE SELEC T 14 MINE-D IS phenobarbita l NOT DETECT ED . Not Available [facility] [address] [place] [address], [id number] 05/10/2024 13:09:23 04/28/20 24 05/10/2024 TOXAS SURE SELEC T 14 MINE-D IS secobarbital NOT DETECT ED . Not Available [facility] [address] [place] [address], [id number] 05/10/2024 13:09:23 04/28/20 24 05/10/2024 TOXAS SURE SELEC T 14 MINE-D IS thiopental NOT DETECT ED . Not Available [facility] [address] [place] [address], [id number] 05/10/2024 13:09:23 04/28/20 24 05/10/2024 TOXAS SURE SELEC T 14 MINE-D IS other hallucinogen s NEGATI VE . Not Available [facility] [address] [place] [address], [id number] 05/10/2024 13:09:23 04/28/20 24 05/10/2024 TOXAS SURE SELEC T 14 MINE-D IS phencyclidin e NOT DETECT ED . Not Available [facility] [address] [place] [address], [id number] 05/10/2024 13:09:23 04/28/20 24 05/10/2024 TOXAS SURE SELEC T 14 MINE-D IS level of detection: BETY GRULLON NG THRES HOLDS ARE FOLLO WS: AMPHE TAMIN ES: 50 ng/mL BENZO DIAZE PINES : 20 ng/mL COCAI NE / METAB OLITE : 50 ng/mL JUANITA OL BIOMA RKERS : ETG-5 00 ng/mL ,ETS- 250 ng/mL CANNA BINOI DS: total -20 ng/mL , carbo xy-TH C-2 ng/mL 6-LINCOLN TYLMO RPHIN E: 10 ng/mL OPIAT E CLASS : 50 ng/mL OXYCO DONE CLASS : 50 ng/mL METHA DONE: 50 ng/mL BUPRE NORPH INE: bupre norph ine-1 .0 ng/mL , norbu preno rphin e-5 ng/mL FENTA NYL / ANALO GUES: fenta nyl-1 .0 ng/mL , other s-5.0 ng/mL TAPEN TADOL : 50 ng/mL TRAMA DOL: 50 ng/mL FRIEDA TURAT ES: 200 ng/mL PCP: 25 ng/mL This test was devel oped and its perfo rmanc e rayray cteri stics deter mined by [facility]. It has not been clear ed or appro vladislav by the Food and Drug Admin istra tion. Perfo rmed at: 01 - [facility] [address] [place] [address] 502 Lab Direc tor: Galina erickson [facility] , Phone : [phone] Not Available [facility] Laboratory Department [address] [place] [address], [address] 05/10/2024 13:09:23 Result Notes None recorded. Problems Name Problem SNOMED Code Status Onset Date Resolution Date Notes Provider Name and Address Organization Details Recorded Time Attentio n deficit hyperact ivity disorder 385490489 Completed 202001/22/2022 Emeterio Newsome MD [address] [place] [address], [address], [facility] 14:52:58 Acid reflux 100899424 Completed 202001/22/2022 Emeterio Newsome MD [address] [place] [address], [address], [facility] 2 13:44:44 Anxiety 45749364 Completed 202001/22/2022 Emeterio Newsome MD [address] [place] [address], [address], [facility] 2 13:44:51 Depressi ve disorder 25437674 Active 2020 Emeterio Newsome MD [address] [place] [address], [address], [facility] 2 09:05:54 Obesity 544581389 Active 2020 Emeterio Newsome MD [address] [place], [place] [address], [address], [facility] 2 09:05:55 High glucose level in blood 129214991 Completed 202107/24/2022 Emeterio Newsome MD [address] [place] [address], [address], [facility] 10:36:11 Vitamin D deficien cy 59124009 Active 2021 Emeterio Newsome MD [address] [place], [place] [address], [address], [facility] 09:05:54 Francois's palsy 781275765 Completed 202101/14/202307/05 ER eval Removal Reason: resolved SIMON White [address] [place], [place] [address], [address], [facility] 17:15:42 Pain of left forearm 16344526043 9109 Completed 202101/14/202302/03 - no active concerns . monitori ng. 07/05 urgent care - x-rays normal / will follow up with PCP for EMG to confirm carpal tunnel. Removal Reason: resolved SIMON White [address] [place], [place] [address], [address], [facility] 3 17:15:35 Morbid obesity 522811837 Completed 202101/22/2022 Emeterio Newsome MD [address] [place], [place] [address], [address], [facility] 2 13:45:33 Urine test due 400603678 Completed 202101/22/2022 Emeterio Newsome MD [address] [place] [address] [place], [address], [facility] 2 13:45:07 Long-ter m current use of drug therapy 905370709 Completed 202101/22/2022 Emeterio Newsome MD [address] [facility] [place], [address], [facility] 2 13:45:53 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 -using cpap. 15mmHg. 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 /advised on exercise plan to help with depressi on. continue with raj erickson. Emeterio Newsome MD [address] [place] [address] [place], [address], [facility] 2 09:05:54 Anxiety disorder 571848831 Active 2021 Counseli alec with [facility]- Lakshmi. No ADHD per neuropsy ch testing, has been on previous SSRIs- paxil, zoloft without benefit. continue , methylph enidate to boost focus and help with resistan t depressi on, venlafax ine, continue with counseli ng. handout given for self care Emeterio Newsome MD [address] [place], [address], [facility] 2 09:05:54 Active immuniza tion Completed 202101/22/2022 Emeterio Newsome MD [address] [place], [place] [address], [address], [facility] 2 13:44:48 Abscess of skin and/or subcutan eous tissue 99757094 Completed 202101/22/2022 Emeterio Newsome MD [address] [place] [address] CAMERON Oliveira, [address], [facility] 2 13:44:46 Cellulit is 445348544 Completed 202101/14/202311/05 upper thigh- s/p abx. Removal Reason: resolved SIMON White [address] [place], [address], [facility] 3 17:15:13 Hyperlip idemia 22286708 Active 2022 LYNNE SMITH NP [address] [place], [address], [facility] 3 06:54:55 Attentio n deficit hyperact ivity disorder , combined type 19300338 Active 2022 LYNNE SMITH NP [address] [place], [address], [facility] 3 06:59:07 Diabetes mellitus 13370914 Active 2023 LYNNE SMITH NP [address] [place], [address], [facility] 4 10:00:51 Notes:Some problems listed i n Documents: #[id number], #[id number] could not be added to this patient's chart. Please review these documents and add these problems to the patient's chart manually as needed. Problem Notes None recorded. Procedures Surgical History Date Name Laterality Status Provider Name and Address Organization Details Recorded Time 07/23/20 22 PHQ-9 Patient Health Questionnaire completed Emeterio Newsome MD [address] [place], [address], [facility] 07/23/2022 15:38:50 10/20/20 21 Skin Tag Removal completed KRISTINA FRAGA NP [address] [place], [address], [facility] 10/20/2021 20:04:49 09/09/20 17 Splint/Cast Application completed Shahana Haskins PA-C [facility] 09/09/2017 14:01:47 procedure on upper extremity completed lAda De La Garza CMA [facility] 01/20/2022 09:50:26 Imaging Results None recorded. Procedure Notes None recorded. Medical Equipment None Reported. Allergies No known drug allergies Medications Name Sig Start Date Stop Date Status Note LastModified by Organization Details LastModified Time amoxicill in 500 mg capsule 10/07 completed Not Available Not Available Not Available metformin 500 mg tablet Take 2 tablets twice a day by oral route for 90 days. active Not Available Not Available No t Available oxcarbaze pine 150 mg tablet TAKE 1 TABLET BY MOUTH EVERY DAY active Not Available Not Available No t Available venlafaxi ne ER 75 mg capsule,e xtended release 24 hr TAKE 1 CAPSULE BY MOUTH EVERY DAY DIRECTED active Not Available Not Available No t Available doxycycli ne hyclate 100 mg capsule 01/22 completed Not Available Not Available Not Available atorvasta tin 20 mg tablet TAKE 1 TABLET BY MOUTH EVERY DAY 2024 active Not Available Not Available Not Avai lable ketoconaz ole 2 % shampoo 10/01 completed Not Available Not Available Not Available ibuprofen 800 mg tablet TAKE 1 TABLET BY MOUTH THREE TIMES A DAY NEEDED FOR 7 DAYS 01/14 completed Not Available Not Available Not Available metoprolo l succinate ER 50 mg tablet,ex tended release 24 hr TAKE 1 TABLET BY MOUTH EVERY DAY active Not Available Not Available No t Available methylphe nidate 10 mg tablet TAKE 1 TABLET BY MOUTH DAILY FOR 7 DAYS 01/22 completed Not Available Not Available Not Available valacyclo vir 1 gram tablet 01/22 completed Not Available Not Available Not Available methylphe nidate 20 mg tablet TAKE 1 TABLET BY MOUTH EVERY DAY NEEDED FOR 28 DAYS active Not Available Not Available No t Available prednison e 20 mg tablet 01/22 completed Not Available Not Available Not Available sertralin e 100 mg tablet 10/20 completed Not Available Not Available Not Available clindamyc in HCl 150 mg capsule Take 1 capsule every 6 hours by oral route for 7 days. 10/01 completed Not Available Not Available Not Available venlafaxi ne ER 150 mg capsule,e xtended release 24 hr TAKE 1 CAPSULE BY MOUTH EVERY DAY DIRECTED active Not Available Not Available No t Available sulfameth oxazole 800 mg-trimet hoprim 160 mg tablet Take 1 tablet every 12 hours by oral route as directed for 10 days. 10/01 completed Not Available Not Available Not Available cephalexi n 500 mg capsule 01/22 completed Not Available Not Available Not Available bupropion HCl 75 mg tablet TAKE 1 TABLET BY MOUTH TWICE A DAY 2023 active Not Available Not Available Not Avai lable fluoxetin e 10 mg capsule TAKE 1 CAPSULE BY MOUTH EVERY DAY 10/24 completed medicati on was disconti nued by Dr Zhang, and patient was started on oxcarbaz epine Not Available Not Available Not Available omeprazol e 20 mg capsule,d elayed release Take 1 capsule every day by oral route. active Not Available Not Available No t Available mupirocin 2 % topical ointment 01/22 completed Not Available Not Available Not Available ergocalci ferol (vitamin D2) 1,250 mcg (50,000 unit) capsule 01/22 completed Not Available Not Available Not Available methylphe nidate ER 36 mg tablet,ex tended release 24 hr TAKE 1 TABLET BY MOUTH EVERY DAY DIRECTED FOR 28 DAYS active Not Available Not Available No t Available bupropion HCl XL 300 mg 24 hr tablet, extended release TAKE 1 TABLET BY MOUTH EVERY DAY IN THE MORNING active Not Available Not Available No t Available metformin ER 500 mg tablet,ex tended release 24hr (osmotic) Take 1 tablet every day by oral route for 90 days. 01/20 completed Not Available Not Available Not Available Zoloft 10/20 completed Not Available Not Available Not Available omeprazol e 01/22 completed Not Available Not Available Not Available Paxil 07/19 completed Not Available Not Available Not Available cholecalc iferol (vitamin D3) 25 mcg (1,000 unit) tablet TAKE 1 TABLET BY MOUTH EVERY DAY active Not Available Not Available No t Available cholecalc iferol (vitamin D3) 1,250 mcg (50,000 unit) capsule TAKE 1 CAPSULE EVERY WEEK BY ORAL ROUTE WITH MEALS. 07/23 completed Not Available Not Available Not Available venlafaxi ne ER 225 mg tablet,ex tended release 24 hr TAKE 1 TABLET BY MOUTH EVERY DAY 03/24 completed tablet not covered Not Available Not Available Not Available Trulicity 0.75 mg/0.5 mL subcutane ous pen injector Inject 0.75 mg every week by subcutan eous route. 04/28 completed Not Available Not Available Not Available Fluzone Quad (PF) 60 mcg (15 mcg x 4)/0.5 mL IM syringe 10/07 completed Not Available Not Available Not Available Vitals Date Recorded Body height Provider Name an d Address Organization Details Last Updated DateTime 10/01/2023 167.64 cm Luz Melo [facility] 10/01/2023 09:33:01 Date Recorded Body mass index (BMI) Body weight Provider Name and Address Organization Details Last Updated DateTime 10/01/2023 42.3 kg/m2 222677.2 g Luz Melo [facility] 10/01/2023 09:40:17 Date Recorded Heart rate Provider Name an d Address Organization Details Last Updated DateTime 10/01/2023 89 /min Luz Melo [facility] 10/01/2023 09:41:58 Date Recorded Body height Provider Name an d Address Organization Details Last Updated DateTime 01/21/2024 167.64 cm Luz Melo [facility] 01/21/2024 15:21:33 Date Recorded Body mass index (BMI) Body weight Provider Name and Address Organization Details Last Updated DateTime 01/21/2024 41.2 kg/m2 053169.05 g [facility] 15:23:18 Date Recorded Heart rate Provider Name an d Address Organization Details Last Updated DateTime 01/21/2024 130 /min [facility]/21/[facility]24 15:24:30 Date Recorded Body height Provider Name an d Address Organization Details Last Updated DateTime 04/28/2024 167.64 cm Alda De La Garza [facility] 04/28/2024 09:57:11 Date Recorded Body mass index (BMI) Body weight Provider Name and Address Organization Details Last Updated DateTime 04/28/2024 40.7 kg/m2 288474.28 g Alda De La Garza [facility] 04/28/2024 09:57:16 Date Recorded Heart rate Provider Name an d Address Organization Details Last Updated DateTime 04/28/2024 74 /min Alda De La Garza [facility] 04/28/2024 10:00:35 Date Recorded Body height Provider Name an d Address Organization Details Last Updated DateTime 01/14/2023 167.64 cm [facility] 01/14/2023 16:05:52 Date Recorded Body mass index (BMI) Body weight Provider Name and Address Organization Details Last Updated DateTime 01/14/2023 40.4 kg/m2 993543.89 g Angela Velazquez [facility] 01/14/2023 16:05:58 Date Recorded Heart rate Provider Name an d Address Organization Details Last Updated DateTime 01/14/2023 111 /min [facility] 01/14/2023 16:06:59 Date Recorded Systolic blood pressure Diastolic blood pressure Provider Name and Address Organization Details Last Updated DateTime 10/01/2023 114 mm[Hg] 79 mm[Hg] [facility] 10/01/2023 09:41:54 Date Recorded Systolic blood pressure Diastolic blood pressure Provider Name and Address Organization Details Last Updated DateTime 01/21/2024 132 mm[Hg] 91 mm[Hg] Luz Melo CNA [facility] 01/21/2024 15:24:16 Date Recorded Systolic blood pressure Diastolic blood pressure Provider Name and Address Organization Details Last Updated DateTime 04/28/2024 103 mm[Hg] 69 mm[Hg] Alda De La Garza CMA [facility] 04/28/2024 10:00:31 Date Recorded Systolic blood pressure Diastolic blood pressure Provider Name and Address Organization Details Last Updated DateTime 01/14/2023 113 mm[Hg] 68 mm[Hg] Angela Velazquez CNA [facility] 01/14/2023 16:06:54 Social History Question Answer Notes LastModified by Organizat ion Details LastModified Time Tobacco Smoking Status Current Some Day Smoker [facility]asionally [facility] 01/14/2023 16:08:48 What Is Your Level Of Alcohol Consumption? Occasional Information not available 01/22/2022 What Is Your Level Of Caffeine Consumption? Moderate Information not available 03/19/2022 Which Illicit Or Recreational Drugs Have You Used? Marijuana Information not available 03/19/2022 How Many Years Have You Used Illicit Or Recreational Drugs? 4 Information not available 03/19/2022 What Was The Date Of Your Most Recent Tobacco Screening? 01/21/2024 [email or web address] Information not available 01/21/2024 Are There Any Smokers In Your House? No Information not available 03/19/2022 Do You Use Any Illicit Or Recreational Drugs? Yes Information not available 03/19/2022 Sex: Unknown Functional Status Question Answer Note LastModified by Organization D etails LastModified Time Are you able to walk? YESWOREST Information not available 03/19/2022 Mental Status None recorded. Family History Relationship Description Onset Age of this Age Resolved Age Notes LastModified by Organization Details LastModified Time Unspecified Relation Malignant tumor of breast [email or web address] Not available 01/20 09:50:55 Unspecified Relation Depressive disorder [email or web address] Not available 01/20 09:51:11 Unspecified Relation Diabetes mellitus [email or web address] Not available 01/20 09:51:38 Mother Depressive disorder [email or web address] Not available 01/20 09:52:19 Maternal Grandmother Malignant tumor of breast [email or web address] Not available 01/20 09:52:30 Maternal Grandmother Diabetes mellitus [email or web address] Not available 01/20 09:52:42 Maternal Grandfather Diabetes mellitus [email or web address] Not available 01/20 09:52:54 Father Social phobia [email or web address] Not available 01/20 09:53:16 Paternal Grandmother Malignant tumor of breast [email or web address] Not available 01/20 09:53:39 Paternal Grandmother Diabetes mellitus [email or web address] Not available 01/20 09:55:01 Sister Obesity Not availabl e 01/20/2022 09:55:39 Paternal Aunt Lupus erythematosu s [email or web address] Not available 01/20 09:55:58 Paternal Uncle Malignant neoplasm of bone [email or web address] Not available 01/20 09:56:12 Medical History No medical history recorded. Immunizations Vaccine Type Date Status Note Provider Nam e and Address Organization Details Recorded Time Influenza, split virus, quadrivalent, PF 10/29/2021 completed Doris Sandra null, [facility] 12/06/2021 06:30:25 COVID-19, mRNA, LNP-S, PF, 30 mcg/0.3 mL dose 10/29/2021 completed Doris Sandra null, [facility] 01/23/2022 07:00:16 Tdap 03/08/2019 completed Doris Sandra null, [facility] 01/23/2022 07:00:16 COVID-19, mRNA, LNP-S, PF, 30 mcg/0.3 mL dose 02/22/2021 completed Doris Sandra null, [facility] 01/23/2022 07:00:16 COVID-19, mRNA, LNP-S, PF, 30 mcg/0.3 mL dose 03/17/2021 completed Doris Flores null, [facility] 01/23/2022 07:00:16 Influenza, split virus, quadrivalent, PF 08/12/2020 completed Doris Flores null, [facility] 01/23/2022 07:00:16 Influenza, split virus, quadrivalent, PF 07/23/2022 completed Alda De La Garza CMA null, [facility] 07/23/2022 16:21:26 Past Encounters Encounter ID Performer Location Encounter Start Date Encounter Closed Date Diagnosis/Indication Diagnosis SNOMED-CT Code Diagnosis ICD10 Code Diagnosis Note [id number] Shahana Haskins PA-C [facility] [address] [facility], [address] [place] [address] 08/30/2017 12:57:22 08/30/2017 13:55:30 Closed fracture of metatarsal bone 53912195 S92.301A 31 yo M with R foot pain, swelling and ecchymosis s/p fall on garage floor when chasing dog 08/23/17. Evaluated in ED with XR images reviewed with concern for possible lisfranc injury. Discussed images with Dr Whitaker, who agrees that with clinical tenderness at midfoot and XR images, will order CT Scan to further evaluate. We will place order and have patient follow up with Dr Whitaker for further management . He is to continue with AC bootNWBwit h crutches. Knows to call office with any concerns. [id number] Shahana Haskins PA-C [facility] [address] [facility], [address] [place] [address] 09/09/2017 13:10:10 09/09/2017 14:09:59 Closed fracture of metatarsal bone 50863614 S92.301A 31 yo M with R foot pain, swelling and ecchymosis s/p fall on garage floor when chasing dog 08/23/17. CT Scan reviewed and discussed with Dr Whitaker, who agrees patient would benefit from cast immobiliza tion and close XR follow up. Discussed with patient, who understood and agreed with plan. No concern for lis franc injury, but will continue to protect fracture healing withNWBand crutch use. He will follow up in 3 weeks or sooner with any concerns. [id number] Shahana Haskins PA-C [facility] [address] [facility], [address] [place] [address] 09/29/2017 10:37:33 09/29/2017 11:49:37 Closed fracture of metatarsal bone 03749001 S92.301A 31 yo M with R foot pain, swelling and ecchymosis s/p fall on garage floor when chasing dog 08/23/17. CT Scan reviewed and discussed with Dr Whitaker, who agrees patient would benefit from cast immobiliza tion and close XR follow up. Discussed with patient, who understood and agreed with plan. No concern for lis franc injury, but will continue to protect fracture healing withNWBand crutch useRepeati maging today in cast, pt denies any pain or numbness/t ingling. Cast removed, he denies any pain, will encouraged slow WBAT and have him return in 3 weeks for XR. [id number] Shahana Haskins PA-C [facility] [address] [facility], [address] [place] [address] 10/20/2017 08:47:09 10/20/2017 09:34:00 Closed fracture of metatarsal bone 66649562 S92.301A 31 yo M with R foot pain, swelling and ecchymosis s/p fall on garage floor when chasing dog 08/23/17. Pt is doing very well today, only mild swelling but overall pleased with improvemen t. He notes that he is comfortabl e in regular sneakers and ambulating well without concerns. Denies any numbness/t ingling. Overall, no further XR needed, as the most recent appear in good alignment without further displaceme nt and callous formation. He knows to call with any concerns. [id number] Rosalio Delcid III, MD [facility] [address] [place] [address] 07/19/2019 11:14:45 07/19/2019 12:51:49 Injury of toe 944225409 S99.921A 33 year old male non smoker with injury to right great toe 4 days ago no swelling or ecchymosis X ray negative Discussed with pt can boogie tape toe, pt choses not to Take motrin or tylenol for pain VS reviewed Lump on thigh 788389070 R22.40 Pt states he felt a lump on thigh, ? small lump on upper thigh, no pain, Could be lipoma, varicosity o= discussed with pt if symptoms start with pain or swelling call PCP [id number] Rosalio Delcid III, MD [facility] [address] [place] [address] 09/12/2020 16:02:53 09/12/2020 17:06:59 Abscess of left thigh [id number] 9536112 L02.416 34 year old male non smoker with c/o abscess left upper thigh for 1 to 2 weeks with increase in size 3 to 4 cm abscess noted, non fluctuant and firm with mild erythema, no drainage Discussed with pt not ready for I&D will treat with medication below Discussed diagnosis of cellulitis with pt. Cellulitis is a local infection of the skin. 1) Antibiotic s given. Take as prescribed , for full duration. 2) Keep area clean and dry 3) Do not pop, squeeze or poke at infection 4) Warm compresses /warm soaks 5) If possible, keep affected area elevated to reduce swelling. 6) Limit physical activity. 7) Tylenol or ibuprofen as needed for pain Infection should improve with antibiotic s, usually within the 7-10 day course of medication . Emphasized the importance of good f/u if symptoms persist despite antibiotic therapy, or if there is any worsening. Some signs of worsening infection include increased redness, swelling, warmth, pain, drainage, red streak from wound, decreased mobility, N/V, fever. VS reviewed [id number] Rosalio Delcid III, MD [facility] [address] [place] [address] 10/07/2020 16:19:40 10/07/2020 17:20:57 Viral screening 647397859 Z11.59 see below Exposure t o SARS-CoV-2 435143631 Z20.828 Suspected COVID-19 Infection Due to recent exposure and symptoms patient has possible COVID-19 infection. Signs and symptoms discussed with patient. Patient educated to self isolate in a room in their home away from others they live with. Mask if available. Patient advised not to leave house for any reason. Self treatment discussed including tylenol for fever, pain or myalgia; cough cold medication s for symptoms. Patient to check temperatur e daily. Monitor for symptoms of respirator y distress. To check in with PCP via phone with change in symptoms. Nature of disease to cause severe respirator y distress discussed. If needs emergent care to notify EMS or ED or PCP office that they may have COVID to allow for proper PPE and isolation. [id number] Rosalio Delcid III, MD [facility] [address] [place] [address] 10/20/2021 15:05:33 10/20/2021 18:22:48 Skin tag [id number] L91.8 Verbal consent obtained from patient requests removal of the skin tag. I would agree it is medically necessary to admit as he is now tender and is bothersome to the patient. Patient tolerates removal procedure well and leaves office in good condition. Given detailed wound care and dressing instructio ns. Advised to return to clinic if develops signs and symptoms of infection. Discussed indication s for. Patient agrees. [id number] Emeterio Newsome MD [address] [address] 01/22/2022 16:28:24 01/22/2022 17:55:13 Gastroesophageal reflux disease without esophagitis 325463503 K21.9 continue omeprazole Anxiety disorder 2119348 06 F41.9 continue venlafaxin e.Counseli alec with CALVIN Martins.No ADHD per neuropsych testing,nava s been on previous SSRIs- paxil, zoloft without benefit.co ntinue, methylphen idate to boost focus and help with resistant depression , venlafaxin e, continue with counseling . handout given for self care Pain of left forearm 367 [id number] 79392 M79.632 07/05 urgent care - x-rays normal / will follow up with PCP for EMG to confirm carpal tunnel.01/14 2 no active concerns. Sleep apnea [id number] G47 .30 using cpap. 15mmHg. declined pulmonary referral Dr Anaya but he cancelled appt. Social phobia 93644167 F 40.10 seeing counselor and recommende d adhd evaluation which was negative per testing./a dvised on exercise plan to help with depression .continue with counselor. Vitamin D deficiency 347 19369 E55.9 continue vit D supplement . [id number] Pedro Morales MD [facility] [address] [place] [address], [place] [place] [address] 03/19/2022 12:50:14 03/19/2022 14:08:20 Obstructive sleep apnea syndrome 68206865 G47.33 Patient will continue with nightly use of positive pressure therapy with attempts to procure his sleep study performed years ago at an outside facility for review focusing on possible additional pathologie s including a sleep-rela yvonne movement disorders could be contributi ng to residual sleepiness . [id number] Emeterio Newsome MD [address] [address] 03/19/2022 12:10:54 03/19/2022 12:34:54 Anxiety disorder 436673074 F41.9 Toxisure [id number] Emeterio Newsome MD [address] [address] 07/23/2022 15:11:24 07/23/2022 16:31:53 Adult health examination 307328245 Z00.01 Patient should discuss medical decisions with Health Care Proxy. Recommende d screenings included colonoscop y screening age 50, earlier based on family history/ri sk factors; bone density age 65, unless risk factors for earlier screening; one time screen for hepatitis C if born between 0902-8205 or has risk factors. Reviewed vaccines and current recommenda tions. Basic health topics include aerobic exercise, importance of healthy/ba lanced diet and minimizing caffeine and alcohol. Anxiety disorder F41.9 continue venlafaxin e.Counseli alec with CALVIN Martins.No ADHD per neuropsych testing,nava s been on previous SSRIs- paxil, zoloft without benefit.co ntinue, methylphen idate to boost focus and help with resistant depression , venlafaxin e, continue with counseling . handout given for self care Gastroesop hageal reflux disease without esophagitis 506608366 K21.9 continue omeprazole - trial every other day use. High gluco se level in blood 446164980 R73.9 check a1c for diabetes risk. Sleep apnea 98332664 G47 .30 using cpap. 15mmHg. saw Dr Morales. Social phobia 01281783 F 40.10 seeing counselor and recommende d adhd evaluation which was negative per testing./a dvised on exercise plan to help with depression .continue with counselor. Vitamin D deficiency 347 88476 E55.9 continue vit D supplement . [id number] Pedro Morales MD [facility] [address] [place] [address] [address] [place] [address] 07/09/2022 10:57:52 07/09/2022 11:47:54 Obstructive sleep apnea syndrome 57090411 G47.33 We will request current DME to change settings on the patient's Respironic s dream station to auto titration and data download in 2 to 3 weeks to confirm efficacy. [id number] Emeterio Newsome MD [address] [address] 11/12/2022 15:57:00 11/12/2022 16:51:51 Anxiety disorder 627252467 F41.9 Continue Venlafaxin e 225mg, discussed counselor -and self care needs. handout given. Gastroesop hageal reflux disease without esophagitis 925058025 K21.9 continue omeprazole - trial every other day use. Prediabetes 672705473 R7 3.03 a1c 6.3 in 08/06 patient informed and started metformin. Advised on healthy food intake an exercise. Sleep apnea 50965297 G47 .30 using cpap. [address]. saw Dr Morales. Social phobia 13252633 F 40.10 seeing counselor and recommende d adhd evaluation which was negative per testing./a dvised on exercise plan to help with depression . Taking methylphen idate which helps with focus and able to sit down and do job all day without distractio ns every few minutes/ continue with counselor. Vitamin D deficiency 347 76350 E55.9 level 51 in 08/06. Depressive disorder 3548 9007 F32.A Using methylphen idate. taking methylphen idate which helps with focus and able to sit down and do job all day without distractio ns every few minutes/se eing counselor and recommende d adhd evaluation which was negative per testing./a dvised on exercise plan to help with depression .discussed counselor -and self care needs. handout given. [id number] Darrian Ogden MD [address] [address] 01/14/2023 15:59:14 01/14/2023 17:13:06 Anxiety disorder 389932242 F41.9 see above Prediabetes 295052602 R7 3.03 Reviewed, last A1c 6.1%. Sleep apnea 16606638 G47 .30 Diligent use of APAP, buys his own supplies. Social phobia 87946930 F 40.10 Doing well wtih activities now. Gastroesop hageal reflux disease without esophagitis 717395071 K21.9 Stable without evidence of bleeding Depressive disorder 3548 9007 F32.A Tolerating venlafaxin e 225mg, unsure if its really solving his depression , aware that it does work especially if he missed 2 days. Attention deficit hyperactivity disorder 585049145 F90.9 Sujit is struggling some with anxiety, having quit his job and not finding a new job yet. Will change methylphen idate from ER 36mg to IR 20mg x2 - try to use lowest effective dose, ideally 20mg daily. [id number] Jessa Werner [address] [address] 05/24/2023 08:31:49 05/24/2023 09:00:36 Hyperlipidemia 02646155 E78.5 lipid panel w/reflex, CMP [id number] LYNNE SMITH NP [address] [address] 10/01/2023 09:21:03 10/01/2023 11:07:10 Adult health examination 586515054 Z00.00 Patient should discuss medical decisions with Health Care Proxy. Recommende d screenings included colonoscop y screening age 50, earlier based on family history/ri sk factors; bone density age 65, unless risk factors for earlier screening; one time screen for hepatitis C if born between 3657-0440 or has risk factors. Reviewed vaccines and current recommenda tions. Basic health topics include aerobic exercise, importance of healthy/ba lanced diet and minimizing caffeine and alcohol. Administra tion of diphtheria, pertussis, and tetanus vaccine 897528950 Z23 2019 Influenza vaccine needed [id number] 106 Z23 discussed having at pharmacy Advance care planning 71 9096866 Z71.89 Discussed having a HCP - sister Hepatitis C screening 41 0213624 Z11.59 The USPSTF recommends one time screening for hepatitis C virus (HCV) infection in adults aged 18 to 79 years. Anxiety disorder 7973744 06 F41.9 venlafaxin e 225 mg daily Depressive disorder 3548 9007 F32.A Continue venlafaxin e 225 mg daily.star t a trial of wellbutrin 75 mg BID as toleratedI f tolerated we can increase to long acting Gastroesop hageal reflux disease without esophagitis 889041291 K21.9 will check mag levelomepr azole 20 mg daily Prediabetes 685876789 R7 3.03 labs ordered Sleep apnea 08236687 G47 .30 daily uses Cpap -no longer follows with pulmonolog y.[place] [facility]. Social phobia 69822465 F 40.10 venlafaxin e 225 mg Vitamin D deficiency 347 22087 E55.9 lab ordered Hyperlipidemia 08378727 E78.5 atorvastat in 20 mg daily Attention deficit hyperactivity disorder, combined type 97336850 F90.2 ritalin 20 mg BID - change to long acting 36 mg and continue the 20 mg at mid day as neededUDS completed todaySched uled contract signed today [id number] LYNNE SMITH NP [address] [address] 01/21/2024 15:20:04 01/21/2024 16:06:14 Diabetes mellitus 44582143 E11.9 last A1C 8.1started Metformin last visit - he was only taking 500 mg daily - was supposed to take 1000 BIDwill repeat labsdiscus sed starting trulicity - agrees to try Mixed anxi ety and depressive disorder 052161602 F41.8 requesting a psychiatry referral for depression and adult ADDhe is on venlafaxin e 225 mg dailythe 75 mg needs ot be refilled Attention deficit hyperactivity disorder 182804551 F90.9 refill requestedH R is elevated - discussed starting a Betablocke r today - agrees to start todayhe is aware that if the HR is still elevated we will need to hold the stimulant Tachycardia 1268876 R00. 0 HR elevatedhe is on a stimulantN eeds to have the HR under 100 to prevent damage to his heartagree s to start betablocke r and reassess [id number] LYNNE SMITH NP [facility] [address] [place] [address] 04/28/2024 09:53:08 04/28/2024 10:44:54 Diabetes mellitus 59600051 E11.9 last A1C - 01/21/24 (6.7) down from 8.1continu e Metformin 1000 BIDwill repeat labs todaydiscu ssed starting trulicity - was not approved by his insurance - will follow up with labs and see if we need to change anything Medication monitoring 39 8068127 Z51.81 UDS sent for ritalin - ADHD meds Anxiety disorder 0659188 06 F41.9 was on venlafaxin e 225 mg daily - was weaned down to 75 mg recentlyhe will be changing to fluoxetine and wellbutrin following a psychiatri st - has had two apts so far and tolerating changes well Depressive disorder 3548 9007 F32.A was on venlafaxin e 225 mg daily - was weaned down to 75 mg recentlyhe will be changing to fluoxetine and wellbutrin following a psychiatri st - has had two apts so far and tolerating changes well Health Concerns Section Related Observation LastModified by Organization Detai ls LastModified Time None Recorded Concern Status LastModified by Organization Details LastModified Time None Recorded Advance Directives Directive None Recorded Payers Encounter Date Sequence Insurance Name Policy Number Policy Garcia Covered Member ID Garcia Member ID Guarantor Name 01/14/2023 1 [facility] [place] Sujit C Barfield [id number] Sujit Barfield 05/24/2023 1 [facility] [id number] Sujit Morales Barfield [id number] Sujit Barfield 10/01/2023 1 [facility] [id number] Sujit Morales Barfield [id number] Sujit Barfield 01/21/2024 1 [facility] [id number] Sujit Morales Barfield [id number] Sujit Barfield 04/28/2024 1 [facility] [id number] Sujit Morales Barfield [id number] Sujit Barfield Notes Date Note Type Note Provider Name and Address Organization Details Recorded Time text/html . 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 Taking methylphenidate ER 36mg for his ADD, notes the time-released methylphenidate helps with focus, able to sit down, but not enough and not fast enough when he needs it (mid-morning). If he takes it too early finds it doesn't last all day, too late he cannot sleep. Anxiety/depression controlled with Venlafaxine 225mg QD. Not seeing a counselor. He misses a few days here and there and really notices by day 3; not sure otherwise if it helps a lot at this time. Currently on Metformin 500mg QD for prediabetes. Has soft stools most days. Working on more appropriate diet, starting to return to gym. Uses APAP nightly, buys his own supplies from [employer]; feels he benefits greatly from this. 11/12/2022: A1c 6.1, glu 124, GFR>90; VitD 27007/23/2022: CBC nml07/17/2021: B12 478, 213/342/38/107/5.59 COVID19 vaccine x2, booster x1; Influenza 07/23/2022 Darrian Ogden MD [address] [place] [address], [phone], [facility] 01/16/2023 17:57:35 3 text/html patient presents for lab tests Jessa arroyo [facility] 05/24/2023 15:11:57 3 text/html Sujit is here today for a CPE. PmHX: Anxiety with social phobia, Depression, GERD, Obesity, Prediabetes, Scoliosis, Sleep apnea, Vitamin D deficiency Overall feeling well with no complaints. States he still has a lack of interest in doing daily activities, feels he doesn't have any hobbies and states I need to find a hobby. Denies SI/HI at this time. Feels the Venlafaxine has improved the SI he has experienced. Following with counsellor weekly. Started in the past 2-3 months. Is interested in starting wellbutrin, continues venlafaxine 225mg daily. Counsellor stated he may benefit from testing for autism, suggested O[facility] wong. ImmunizationsTdap: 2019Influenza: pharmacyCovid:x3 Sleep: use of cpap every night, 6-8 hoursDiet: 2 meals daily, not well balanced.Exercise: not oftenSmoker: marijuana dailyAlcohol: occasionalDrug use: marijuanaAnxiety/depression : daily, following with counsellorBladder/Bowel changes: noneSkin/mole changes: noneHealth Care proxy discussion: Would be sister. attention deficit hyperactivity disordermethylphenidate from ER 36mg to IR 20mg x2 - try to use lowest effective dose, ideally 20mg daily. anxiety disorderprediabetes sleep apneaDiligent use of APAP, buys his own supplies. social phobiaDoing well wtih activities now. gastroesophageal reflux disease without esophagitisStable without evidence of bleeding depressive disorderTolerating venlafaxine 225mg, unsure if its really solving his depression, aware that it does work especially if he missed [address] Newsome noted - last annul exam - nxiety/Depression /social phobia- would like to consider increasing methylphenidate. using venlafaxine- feels like a fraud at work - generally successful at doing job. Ritalin allows focus.GERD- well controlled with omeprazole. symptoms after 3-4 days of missed pills.Constipation- related to high gatorade use. Very soft stool and moves bowels 2x a day.Back pain- related to injury 2 weeks ago with tweaking back getting out of car. Now better.Sleep apnea- still on CPAP, saw Dr Morales 2 weeks ago. Sujit is here today for a CPE. PmHX: Following with counsellor weekly. Started in the past 2-3 months. Is interested in starting wellbutrin, continues venlafaxine 225mg daily. Counsellor stated he may benefit from testing for autism, suggested Oj wong. ImmunizationsTdap: 2019Influenza: pharmacyCovid:x3 Sleep: use of cpap every night, 6-8 hoursDiet: 2 meals daily, not well balanced.Exercise: not oftenSmoker: marijuana dailyAlcohol: occasionalDrug use: marijuanaAnxiety/depression : daily, following with counsellorBladder/Bowel changes: noneSkin/mole changes: noneHealth Care proxy discussion: Would be sister. attention deficit hyperactivity disordermethylphenidate from ER 36mg to IR 20mg x2 - try to use lowest effective dose, ideally 20mg daily. anxiety disorderprediabetes sleep apneaDiligent use of APAP, buys his own supplies. social phobiaDoing well wtih activities now. gastroesophageal reflux disease without esophagitisStable without evidence of bleeding depressive disorderTolerating venlafaxine 225mg, unsure if its really solving his depression, aware that it does work especially if he missed [address] Newsome noted - last annul exam - nxiety/Depression /social phobia- would like to consider increasing methylphenidate. using venlafaxine- feels like a fraud at work - generally successful at doing job. Ritalin allows focus.GERD- well controlled with omeprazole. symptoms after 3-4 days of missed pills.Constipation- related to high gatorade use. Very soft stool and moves bowels 2x a day.Back pain- related to injury 2 weeks ago with tweaking back getting out of car. Now better.Sleep apnea- still on CPAP, saw Dr Morales 2 weeks ago. LYNNE SMITH, SALES AND SERVICE REPRESENTATIVE [address] [place], [address], [facility] 10/01/2023 11:17:28 4 text/html Sujit is here today for a f/u on Diabetes 10/01/23 - A1C = 8.1diabetes rangeStarted metformin - he was not aware that he needed to take 1000 BID - was only taking 500 dailywill start taking 2 BIDAgrees to try Trulicity - starting dose to see how he tolerates this medWeight is 255 - BMI -= 41We discussed diet today and avoiding ultra processed foods, excess simple carbs, high fructose corn syrups (soda) - he does drink a lot of soda Agrees to start a beta yani for the elevated HR - he is on ritalin and is aware in order to continue this med he needs his HR to be 60-100Risks explained about vitals and his stimulant meds. BP: 131/91discussed the metoprolol helping with HR and BP Request for psychiatry for his and adult ADD/ADHD depression He is living in [facility] [place] = [place] - he lives with his sister - but he does come to visit his parents every time he has an office visit LYNNE SMITH NP [address] [facility], [place], [address], [facility] 01/21/2024 16:12:45 4 text/html Morales is here today for a follow up for DM BP: 103/69HR: 74 After starting metoprolol ER 50 mg last visit - his HR and BP are in better controlHe is asking if he needs to stay on all his meds if he gets his DM in good control - we discussed having close follow up apts - diet and exercise will also be a factor in stopping medicationsWeight loss is also a good lifestyle change He is seeing a psychiatrist on line - [facility] Changed his meds from venlafaxine 225 mg to 75 - weaning down and will eventually change to fluoxetine and wellbutrinHe is tolerating this well so far Denies any neuropathy or vision changes LYNNE SMITH NP [address] [facility], [place], [address], [facility] 04/28/2024 10:29:00
--- OUTSIDE RECORDS SUMMARY | 2024-12-16 13:13 | XMS_ITS | Referral Summary ---
Author Organization [facility] Address [address] [place] [address] Care Team Providers Care Podiatry Assistant Name Role Phone Patient, Has No Pcp Or Ref Primary Care Provider Unavailable Allergies No known active allergies Medications methylphenidate HCl (RITALIN) 5 mg tablet Take 5 mg by mouth 2 times a day. Active venlafaxine (EFFEXOR) 25 mg tablet Take 25 mg by mouth 2 times a day. Active omeprazole (PriLOSEC) 20 mg capsule Take 20 mg by mouth once a day. Active Social History Tobacco Use Types Packs/Day Years Used Date Smoking Tobacco: Never Assessed Sex and Gender Information Value Date Recorded Sex Assigned at Not on file Legal Sex Male 10:08 AM EDT Gender Identity Not on file Sexual Orientation Not on file Last Filed Vital Signs Vital Sign Reading Time Taken Comments Blood Pressure 120/73 11/30/2021 4:16 PM EST Pulse 98 11/30/2021 4:53 PM EST Temperature 37 ??C (98.6 ??F) 11/30/2021 4:16 PM EST Respiratory Rate 18 11/30/2021 4:16 PM EST Oxygen Saturation 97% 11/30/2021 4:16 PM EST Inhaled Oxygen Concentration - - Weight - - Height - - Body Mass Index - - Plan of Treatment Not on file Insurance [facility] Care Teams Podiatry Assistant Relationship Specialty Start Date End Date Patient, Has No Pcp Or Ref DO NOT EDIT THIS RECORD VIA PROVIDER ON THE FLY PCP - General Surgical Elastic Knitter 11/30/21
--- OUTSIDE RECORDS SUMMARY | 2024-12-16 13:13 | XMS_ITS | Clinical Summary ---
Author Organization [facility] Address [address] [place] [address] Care Team Providers Care Batch Or Continuous Still Operator Name Role Phone Patient, Has No Pcp [...] Mass Index - - Plan of Treatment Health Maintenance Due Date Last Done Comments HIV Screening 1983 Hepatitis C Screening 1983 Varicella Vaccines (1 of 2 - 13+ 2-dose series) 1996 Hepatitis B Vaccines (1 of 3 - 19+ 3-dose series) 2002 COVID-19 Vaccine ( - 2023-2 5 season) 2024 10/29/2021, 03/17/2021, 02/22/2021 Influenza Vaccine (#1) 2024 , 10/29/2021, 08/12/2020 Alcohol/Substance Use Screening 11/15/2024 Depression Screening and Follow-Up 11/15/2024 DTaP,Tdap,and Td Vaccines (2 - Td or Tdap) 03/08/2029 03/08/2019 RSV Vaccine (60+ years old and patients) (1 - 1-dose 75+ series) 2058 Pneumococcal Vaccine: Pediatric (0-5 Years) and At-Risk Patients (6-64 Years) Aged Out No longer eligible based on patient's age to complete this topic Insurance [facility] Care Teams Batch Or Continuous Still Operator Relationship Specialty Start Date End Date Patient, Has No Pcp Or Ref DO NOT EDIT THIS RECORD VIA PROVIDER ON THE FLY PCP - General Laboratory Veterinarian 11/30/21
--- OUTSIDE RECORDS SUMMARY | 2024-12-16 13:13 | XMS_ITS | Encounter Summary ---
Author Organization [facility] Address [address] [place] [address] Care Team Providers Care Med Surg Nurse Name Role Phone Patient, Has No Pcp Or Ref Primary Care Provider Unavailable Encounter Details Date Type Department Care Team (Late st Contact Info) Description 12/04/2021 Telephone [facility] Emergency Department [address] [place] [address] Shagufta Steinberg RN Social History Tobacco Use Types Packs/Day Years Used Date Smoking Tobacco: Never Assessed Sex and Gender Information Value Date Recorded Sex Assigned at Not on file Legal Sex Male 10:08 AM EDT Gender Identity Not on file Sexual Orientation Not on file documented as of this encounter Miscellaneous Notes * Telephone Encounter - Shagufta Steinberg RN - 12/04/2021 3:10 PM EST ----- Message from SIMON Kong sent at 12/03/2021 12:46 PM EST ----- Regarding: RE: urine cx Reviewed patient's chart. Discharged on Bactrim. No allergies. Please call and have him discontinueBactrim and call him in cephalexin 500 mg 2 times daily for 7 days. Thank you. ----- Message ----- From: Ilana Robison RN Sent: 12/03/2021 12:11 PM EST To: [facility] Lip Review Pool Subject: urine cx Pt dc'd home on Bactrim DS. NKDA ##PLEASE RESPOND TO RESULTS POOL## ----- Message ----- From: Lab, Background User Sent: 12/03/2021 12:06 PM EST To: [facility] Results Review Pool documented in this encounter Plan of Treatment Not on file documented as of this encounter Visit Diagnoses Not on filedocumented in this encounter Care Teams Med Surg Nurse Relationship Specialty Start Date End Date Patient, Has No Pcp Or Ref DO NOT EDIT THIS RECORD VIA PROVIDER ON THE FLY PCP - General Clip Baker 11/30/21 documented as of this encounter
[2024-12-16 13:18] LABS: B Type Natriuretic Peptide < 10 pg/mL (<100)
[2024-12-16 13:21] LABS: Alanine Aminotransferase 30 U/L (0-40); Albumin Level 4.4 g/dL (3.5-5.0); Alkaline Phosphatase 91 U/L (39-117); Anion Gap 13 (12-20); Aspartate Amino Transferase 26 U/L (5-37); Bilirubin Direct 0.2 mg/dL (0.0-0.5); Bilirubin Total 0.4 mg/dL (0.0-1.0); Blood Urea Nitrogen 11 mg/dL (9-16); Calcium 8.9 mg/dL (8.4-10.2); Carbon Dioxide 22 mmol/L (22-29); Chloride 108 mmol/L (96-108); Estimated Glomerular Filt Rate > 60; Glucose Random 134 mg/dL (60-115); Magnesium 1.9 mg/dL (1.6-2.6); Potassium 3.9 mmol/L (3.3-5.1); Sodium 139 mmol/L (135-145); Total Protein 7.8 g/dL (6.5-8.0)
[2024-12-16 13:23] LABS: Troponin-I High Sensitivity < 2.7 ng/L (<3.5-35.0)
[2024-12-16 13:35] LABS: TSH reflex Free T4 0.61 uIU/mL (0.32-4.0)
[2024-12-16 13:37] LABS: Influenza A PCR NEGATIVE (Negative); Influenza B PCR NEGATIVE (Negative); Resp Syncy Virus RNA Qual PCR NEGATIVE (Negative); SARS COV2 PCR INHOUSE NEGATIVE (Negative)
[2024-12-16 14:18] LABS: D Dimer High Sensitivity < 150 NG/ML
[2024-12-16 14:26] VITALS: BP 130/84; PULSE 100; PULSE 102; RESP 18; O2SAT 97
[2024-12-16] MEDS: Aspirin 81 MG TAB.CHEW 324 MG PO (14:28)
--- NOTE | 2024-12-16 14:38 | ECG_ITS ---
Test Reason : CHEST PAIN, DYSPNEA Blood Pressure : */* mmHG Vent. Rate : 100 BPM Atrial Rate : 100 BPM P-R Int : 158 ms QRS Dur : 92 ms QT Int : 362 ms P-R-T Axes : 71 11 19 degrees QTcB Int : 466 ms Normal sinus rhythm Normal ECG When compared with ECG of 16-Dec-2024 12:24, No significant change was found Referred By: Chet Thompson Electronically Signed By: AMBER RAMOS
[2024-12-16 15:37] LABS: Troponin-I High Sensitivity < 2.7 ng/L (<3.5-35.0)
[2024-12-16 16:04] VITALS: BP 119/77; PULSE 101; RESP 18; TEMP 36.9; O2SAT 97
[2024-12-16 16:13] VITALS: BP 119/77; PULSE 101; RESP 18; TEMP 36.9; O2SAT 97
== END 2024-12-16 16:13 | disposition home or self-care (01) ==
PROVIDERS: Physician Assistant; Emergency Provider Emergency Medicine
DX: R07.9 Chest pain, unspecified (principal); R06.02 Shortness of breath; R00.0 Tachycardia, unspecified; K21.9 Gastro-esophageal reflux disease without esophagitis; G47.33 Obstructive sleep apnea (adult) (pediatric); F12.90 Cannabis use, unspecified, uncomplicated; Z03.818 Encounter for observation for suspected exposure to other biological agents ruled out
CPT/HCPCS: 0241U; 36415; 71045; 80048; 80076; 83735; 83880; 84443; 84484; 85025; 85379; 85610; 93005; 99283; 99285

== ENCOUNTER → 2024-12-16 12:46 | Outpatient (BNV) | payer OTHER, SELFPAY | PROVIDERS: Emergency Provider Emergency Medicine; Visit Provider Radiology Diagnostic Radiology | DX: R07.9 Chest pain, unspecified (principal) | CPT/HCPCS: 71045 ==